=== PATIENT | male | born 1955 | race Caucasian/White ===

== ENCOUNTER → 2020-12-21 13:36 | Outpatient (BNVA) | payer MEDICARE, BC, SELFPAY | PROVIDERS: PCP Internal Medicine; Visit Provider Internal Medicine Cardiovascular Disease | DX: I25.10 Atherosclerotic heart disease of native coronary artery without angina pectoris (principal); I10 Essential (primary) hypertension; E78.5 Hyperlipidemia, unspecified | CPT/HCPCS: 93005; 99212 ==

== ENCOUNTER → 2021-07-11 14:54 | Outpatient (BNVA) | payer MEDICARE, BC, SELFPAY | PROVIDERS: PCP Family Medicine; Visit Provider Internal Medicine Cardiovascular Disease | DX: R06.00 Dyspnea, unspecified (principal); I25.10 Atherosclerotic heart disease of native coronary artery without angina pectoris | CPT/HCPCS: 99212 ==

== ENCOUNTER → 2021-11-28 14:45 | Outpatient (BNVA) | payer MEDICARE, BC, SELFPAY | PROVIDERS: PCP Family Medicine; Visit Provider Internal Medicine Cardiovascular Disease | DX: I25.10 Atherosclerotic heart disease of native coronary artery without angina pectoris (principal); I10 Essential (primary) hypertension | CPT/HCPCS: 93005; 99212 ==

== ENCOUNTER → 2022-08-05 15:00 | Outpatient (BNVA) | payer MEDICARE, BC, SELFPAY | PROVIDERS: PCP Family Medicine; Referring Provider Family Medicine; Visit Provider Internal Medicine Cardiovascular Disease | DX: I25.10 Atherosclerotic heart disease of native coronary artery without angina pectoris (principal); I10 Essential (primary) hypertension; R06.00 Dyspnea, unspecified | CPT/HCPCS: 93005; 99212 ==

== ENCOUNTER → 2022-08-15 10:05 | Outpatient (BNVA) | payer MEDICARE, BC, SELFPAY | PROVIDERS: PCP Family Medicine; Visit Provider Internal Medicine Pulmonary Disease | DX: R06.00 Dyspnea, unspecified (principal); R91.8 Other nonspecific abnormal finding of lung field | CPT/HCPCS: 99202 ==

== ENCOUNTER 2022-08-20 13:24 | Outpatient (REF) | payer MEDICARE, BC, SELFPAY ==
--- NOTE | ~2022-08-20 | CT_ITS ---
EXAMINATION: CT CHEST WITHOUT CONTRAST CLINICAL INFORMATION: Other nonspecific abnormal finding of lung field. Pulmonary nodules. COMPARISON: Previous chest x-ray September 2018 TECHNIQUE: Multidetector volumetric CT imaging of the chest was done. Axial MIP volume rendering provided. Sagittal and coronal reformatted images were obtained. This CT examination was performed using dose optimization techniques as appropriate, variously including the following: *Automated exposure control *Adjustment of mA and/or kV according to patient size (this includes techniques or standardized protocols for targeted exams where dose is matched to indication/reason for exam; i.e. extremities or head) *Use of iterative reconstruction technique DLP: 277 mGy-cm FINDINGS: LUNGS: There is a 2 mm peripheral right lower lobe nodule axial image 187 series 5. There is a 2 mm left lower lobe nodule axial image 233 series 5. There is a 2 mm right lower lobe nodule axial image 225 series 5. There is a 3 mm calcified right lower lobe nodule axial image 252 series 5. MEDIASTINUM: The mediastinum is normal. CORONARY ARTERY CALCIFICATION: Mild. PLEURA: There is no pleural effusion. No pleural mass or thickening. AXILLA: No lymphadenopathy. UPPER ABDOMEN: Unremarkable. OSSEOUS STRUCTURES: Degenerative changes of the spine. CT/CT chest wo IV con IMPRESSION: Small pulmonary nodules, largest a 3 mm calcified right lower lobe nodule. According to the UPDATED 2017 Fleischner Society recommendations, the advised follow-up imaging for less than 6 mm solid nodule: Low risk, no chest CT follow-up and high risk, optional chest CT follow-up in one year. Fleischner guidelines were followed.
== END 2022-08-20 13:25 | disposition home or self-care (01) ==
LOC: HO.CT 13:24
PROVIDERS: Visit Provider Internal Medicine Pulmonary Disease
DX: R91.8 Other nonspecific abnormal finding of lung field (principal)
CPT/HCPCS: 71250

== ENCOUNTER 2022-09-06 12:42 | Outpatient (REF) | payer MEDICARE, BC, SELFPAY ==
--- NOTE | 2022-09-06 15:22 | PFT_ITS ---
INDICATION: Dyspnea. SPIROMETRY: FEV1 to FVC of 80% with an FEV1 of 2.87 L, 102% predicted, FVC of 2.58 L, which is 92% predicted. No significant response to bronchodilators noted. Maximum voluntary ventilation 79% predicted. DIFFUSING CAPACITY: DLCO 86% predicted. COMPARISONS: None. INTERPRETATION: No obstructive ventilatory defect. No significant response to bronchodilators noted. Normal maximum voluntary ventilation. The patient does have a restrictive ventilatory defect, consistent with very mild restrictive lung disease. Normal diffusion capacity. Clinical correlation is warranted. MD CATALINA Rollins/ERICK / [phone]
== END 2022-09-06 12:43 | disposition home or self-care (01) ==
LOC: HO.RESP 12:42
PROVIDERS: PCP Family Medicine; Visit Provider Internal Medicine Pulmonary Disease
DX: R06.00 Dyspnea, unspecified (principal)
CPT/HCPCS: 94060; 94727; 94729

== ENCOUNTER → 2022-10-08 11:38 | Outpatient (BNVA) | payer MEDICARE, BC, SELFPAY | PROVIDERS: PCP Family Medicine; Visit Provider Internal Medicine Pulmonary Disease | DX: R06.00 Dyspnea, unspecified (principal); R91.8 Other nonspecific abnormal finding of lung field | CPT/HCPCS: Q3014 ==

== ENCOUNTER 2023-08-06 12:46 | Outpatient (AMB) | payer MEDICARE, BC, SELFPAY ==
[2023-08-06 13:01] VITALS: BP 130/80; PULSE 88; BMI 31.0
--- NOTE | 2023-08-06 13:01 | A.OFFVIS_ITS ---
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 He has background history of coronary artery disease and presented with inferior ST-elevation [place] for which she underwent PCI to right coronary artery. Subsequent to that he was admitted with unstable angina and had PCI to diagonal artery. He has residual LAD stenosis which was medically managed. He has been doing well and has no exertional chest discomfort. Taking medications regularly. He has dyspnea on exertion in particular when he is going up hill. He was a former smoker and was vaping for 2 years also. He was referred to pulmonology and has been following with them regularly. 08/06/2023: Returns for follow-up. He h as been experiencing more dyspnea on exertion. He has gained some weight and has not been exercising regularly. Apparently he was referred for exercise stress test by his primary care physician where he was able to exercise for 2 metabolic equivalents and stop because of shortness of breath. He subsequently had nuclear perfusion imaging which was normal. His returning and is complaining of shortness of breath. He does not have any significant chest discomfort. He is saying that pulmonology has told him that he does not have significant lung disease as cause for his dyspnea. He clearly has a lot of functional limitation. Previously we did not stent is LAD because it may involve a complex bifurcation stenting. He had resi dual disease in the LAD. [facility] History H/O removal of cyst History of heart artery stent Family History Mother Primary cancer of bone marrow Father Prostate cancer Heart disease Social History Alcohol intake: current Alcohol intake frequency: holidays/special occasions only Patient Tobacco Use Status: Former Tobacco user Quit Date: 2013 Years Smoked: 30 +/- Review of Systems Const Denies chills, Denies fatigue, Denies fever(s), Denies frequent falls, Denies weakness, Denies weight gain and Denies weight loss ENT Denies dizziness Card Denies chest pain, Denies leg edema, Denies lightheadedness, Denies palpitations, Denies dyspnea, Denies dyspnea on exertion, Denies orthopnea and Denies other (loss of consciousness) Resp Denies cough, Denies dyspnea and Denies dyspnea on exertion GI Denies hematochezia and Denies change in stool character Musc Denies abnormal gait, Denies muscle weakness, Denies numbness, Denies radiating pain into limb and Denies tingling Neuro Denies abnormal gait, Denies dizziness, Denies frequent falls, Denies numbness, Denies tingling and Denies weakness Endo Denies fatigue and Denies palpitations Physical Exam Vital Signs: Last Vital Signs Pulse 88 08/06/23 13:01 BP 130/80 08/06/23 13:01 BMI result Body Mass Index 31.0 GENERAL APPEARANCE: in no acute distress, pleasant. NECK: no carotid bruit, no jugular venous distention. SKIN: no suspicious lesions, warm and dry. HEART: no murmurs, regular rate and rhythm. LUNGS: clear to auscultation bilaterally. ABDOMEN: soft, nontender. EXTREMITIES: no edema. PERIPHERAL PULSES: equal. NEUROLOGIC: No gross deficits, AAO X 3 Assessment & Plan Assessment & Plan (1) MI (dyspnea on exertion): Code(s): R06.00 - Dyspnea, unspecified (2) Coronary artery disease: Code(s): I25.10 - Atherosclerotic heart disease of [place] coronary artery without angina pectoris Qualifiers: Coronary Disease-Associated Artery/Lesion type: [place] artery [place] vs. transplanted heart: [place] heart Associated angina: without angina Qualified Code(s): I25.10 - Atherosclerotic heart disease of [place] coronary artery without angina pectoris Plan Pleasant 68 gentleman is here for follow-up. He had RCA PCI in setting of inferior ST-elevation [place] and subsequently had diagonal PCI for angina. He is presenting now for dyspnea on exertion ongoing for some time. He had stress testing performed where he was able to exercise only for 2 metabolic equivalents and had significant dyspnea. I have explained to him that he has significant functional limitation currently and I am unsure whether this is related to his deconditioning/lack of exercise and weight gain, lung disease or progression of coronary artery disease. I have advised him that we should do diagnostic angiogram. He will discuss with his family and get back to us. Blood pressure control is good. He will continue same medications for now. Thank you for allowing me to participate in the care of your patient. Please feel free to contact me if you have any questions. Coding Level of Care Code Est Pt Level 4 (62510) Diagnoses MI (dyspnea on exertion) R06.00 Coronary artery disease involving [place] coronary artery of [place] heart without angina pectoris I25.10 Coronary Disease-Associated Artery/Lesion type: [place] artery [place] vs. transplanted heart: [place] heart Associated angina: without angina
== END 2023-08-06 13:41 | disposition home or self-care (01) ==
PROVIDERS: PCP Family Medicine; Visit Provider Internal Medicine Cardiovascular Disease
DX: R06.00 Dyspnea, unspecified (principal); I25.10 Atherosclerotic heart disease of native coronary artery without angina pectoris
CPT/HCPCS: 93010; 99214

== ENCOUNTER → 2023-08-06 12:46 | Outpatient (BNVA) | payer MEDICARE, BC, SELFPAY | PROVIDERS: PCP Family Medicine; Visit Provider Internal Medicine Cardiovascular Disease | DX: I25.10 Atherosclerotic heart disease of native coronary artery without angina pectoris (principal); R06.00 Dyspnea, unspecified; I25.2 Old myocardial infarction | CPT/HCPCS: 93005; 99212 ==

== ENCOUNTER 2023-08-29 10:56 | Outpatient (REF) | payer MEDICARE, BC, SELFPAY ==
[2023-08-29 11:08] LABS: MANUAL DIFF FLAG NO
[2023-08-29 12:01] LABS: Basophils Percent Auto 0.5 % (0-2); Eosinophils Absolute Auto 0.1 X10*3/uL (0.0-0.4); Eosinophils Percent Auto 1.6 % (0-4); Hematocrit 42.5 % (42.0-52.0); Hemoglobin 14.7 g/dl (14.0-18.0); Imm Gran Abs Auto 0.02 X10*3/uL (0.00-0.03); Imm Gran Pct Auto 0.3 % (0.0-0.4); Lymphocytes Absolute Auto 1.2 X10*3/uL (1.2-4.9); Lymphocytes Percent Auto 20.1 % (20-40); Mean Corpuscular HGB Conc 34.6 g/dl (31.0-36.0); Mean Corpuscular Volume 86.7 fL (80.0-98.0); Mean Platelet Volume 10.8 fL (9.4-12.4); Monocytes Absolute Auto 0.5 X10*3/uL (0.1-1.2); Monocytes Percent Auto 8.9 % (2-11); Neutrophils Absolute Auto 4.2 x10*3/uL (2.0-8.3); Neutrophils Percent Auto 68.6 % (45-73); Platelet Count 161 X10*3/uL (160-400); Red Cell Distribution Width 13.4 % (11.0-16.0); White Blood Count 6.1 X10*3/uL (4.8-10.8)
[2023-08-29 12:02] LABS: INTERNATIONAL NORM RATIO 1.2 (0.9-1.1); Prothrombin Time 14.4 SEC (11.1-13.3)
[2023-08-29 12:42] LABS: Anion Gap 12 (12-20); Blood Urea Nitrogen 15 mg/dL (9-16); Calcium 8.8 mg/dL (8.4-10.2); Carbon Dioxide 23 mmol/L (22-29); Chloride 109 mmol/L (96-108); Estimated Glomerular Filt Rate > 60; Glucose Random 92 mg/dL (60-115); Potassium 4.7 mmol/L (3.3-5.1); Sodium 139 mmol/L (135-145)
== END 2023-08-29 10:57 | disposition home or self-care (01) ==
LOC: HO.LAB 10:56
PROVIDERS: PCP Family Medicine; Visit Provider Nurse Practitioner
DX: R06.00 Dyspnea, unspecified (principal); I25.10 Atherosclerotic heart disease of native coronary artery without angina pectoris
CPT/HCPCS: 36415; 80048; 85025; 85610

== ENCOUNTER → 2023-09-09 23:59 | Outpatient (BNV) | payer MEDICARE, BC, SELFPAY | PROVIDERS: PCP Family Medicine; Visit Provider Internal Medicine Cardiovascular Disease | DX: R93.1 Abnormal findings on diagnostic imaging of heart and coronary circulation (principal); I20.89 Other forms of angina pectoris | CPT/HCPCS: 93458; 93571; 93572; 99152 ==

== ENCOUNTER 2023-09-24 13:29 | Outpatient (AMB) | payer MEDICARE, BC, SELFPAY ==
--- NOTE | 2023-09-24 13:30 | MHC.OFFVIS ---
Intake Vital Signs 09/24/23 13:31 Height 5 ft 6 in Weight 180 lb 12.465 oz BMI 29.2 BP 120/80 Blood Pressure Location Lt brachial Position Sitting Pulse 74 Intake Visit Reasons: Follow up post cardiac cath Intake Note: follow up post cardiac cath, heavy breathing Evaluation Assistant Required: No Accompanied by: Self / Same As Patient Allergies No Known Allergies [No Known Allergies*] Allergy (Verified 09/24/23 13:40) Medication List - Last Reconciled 09/24/23 by Purnima Serna NP aspirin 81 mg PO DAILY atorvastatin 80 mg PO DAILY bupropion HCl 150 mg PO QAM carvedilol 3.125 mg PO BID clopidogrel 75 mg PO DAILY lisinopril 2.5 mg PO DAILY nitroglycerin 0.4 mg sublingual Q5M PRN HPI HPI Comments History of Present Illness Details 68-year-old male presents for a follow-up after cardiac cath. He reports he is still short of breath on exertion. He reports compliance with his medications. He continues to not smoke/vape. He did a PFT and Chest X-Ray and reports they were fine and will forward those results to us. He will see Pulmonary once he can make his appointment. Right radial site is healing well. No erythema, tenderness, or bruising noted. Breathing is noted to not be cardiac related as no significant changes from 2018 cath. [facility] Surgical History (Updated 09/24/23 @ 14:01 by Purnima Serna NP) H/O removal of cyst History of heart artery stent Family History Mother Primary cancer of bone marrow Father Prostate cancer Heart disease (Updated 09/24/23 @ 13:50 by Purnima Serna NP) Alcohol intake: current Alcohol intake frequency: holidays/special occasions only Patient Tobacco Use Status: Former Tobacco user Quit Date: 2013 Years Smoked: 30 +/- e-Cigarette/Vaping Use: Former Use Date or number of years quit: quit 2016 Review of Systems Const Denies chills, Denies fatigue, Denies fever(s), Denies frequent falls, Denies weakness, Denies weight gain and Denies weight loss ENT Denies dizziness Card Denies chest pain, Denies leg edema, Denies lightheadedness, Denies palpitations, Denies dyspnea, Denies dyspnea on exertion, Denies orthopnea and Denies other (loss of consciousness) Resp Denies cough, Denies dyspnea and Denies dyspnea on exertion GI Denies hematochezia and Denies change in stool character Musc Denies abnormal gait, Denies muscle weakness, Denies numbness, Denies radiating pain into limb and Denies tingling Neuro Denies abnormal gait, Denies dizziness, Denies frequent falls, Denies numbness, Denies tingling and Denies weakness Endo Denies fatigue and Denies palpitations Physical Exam Vital Signs: Last Vital Signs BP 120/80 09/24/23 13:31 BMI result Body Mass Index 29.2 Const General: healthy appearing and no acute distress Orientation/consciousness: patient oriented x3 HEENT Head: Yes normal to inspection Eyes General: appearance normal, both eyes and all related structures Neck Neck: Yes normal visual inspection Chest Chest palpation & inspection: normal inspection of the chest Resp Effort & Inspection: normal respiratory effort Auscultation: clear to auscultation bilaterally Cardio Jugular venous distension: no JVD Palpation: normal PMI Rate: regular rate Rhythm: regular rhythm Heart sounds: S1 normal heart sound present, S2 normal heart sound present, no click, no gallops, no murmurs and no rubs GI Inspection: Yes normal to inspection Palpation (GI): Soft to palpation Skin General skin exam: no rashes or lesions noted Neuro General: patient oriented x3 Extrem Other: Right radial site healing appropriately. General: Yes normal to inspection Psych Appearance: grossly normal Assessment & Plan Assessment & Plan (1) S/P cardiac cath: Comment: 09/09/[address] Garsia Cardiac Arteries and Lesion Findings LMCA: Normal. LAD: There is a previous stent on 1st Diag Mid subsection. Lesion in Prox LAD: Proximal subsection.65% stenosis . LCx: Mild disease mid LCx. RCA: There is a previous stent on Dist RCA. Lesion in Mid RCA: 60% stenosis Code(s): Z98.890 - Other specified postprocedural states (2) Stable angina: Code(s): I20.89 - Other forms of angina pectoris Plan Plan for cardiac rehab. He will do this at [facility] per his preference. Continue ASA 81mg indefinitely. Aggressive risk factor modification such as heart healthy diet, weight loss, continue no smoking/vaping, and continue medications as currently prescribed. Orders: Orders Cardiac Rehab Today I20.89 - Other forms of angina pectoris, Z98.890 - Other specified postprocedural states Coding Level of Care Code Est Pt Level 3 (26308) Diagnoses S/P cardiac cath Z98.890 Stable angina I20.89
[2023-09-24 13:31] VITALS: BP 120/80; PULSE 74; BMI 29.2
== END 2023-09-24 14:00 | disposition home or self-care (01) ==
PROVIDERS: PCP Family Medicine; Visit Provider Nurse Practitioner
DX: Z98.890 Other specified postprocedural states (principal); I20.89 Other forms of angina pectoris
CPT/HCPCS: 99213

== ENCOUNTER → 2023-09-24 13:29 | Outpatient (BNVA) | payer MEDICARE, BC, SELFPAY | PROVIDERS: PCP Family Medicine; Visit Provider Nurse Practitioner | DX: I20.89 Other forms of angina pectoris (principal); Z98.890 Other specified postprocedural states; Z95.5 Presence of coronary angioplasty implant and graft | CPT/HCPCS: 99212 ==

== ENCOUNTER 2023-10-05 11:04 | Emergency (ER) | payer MEDICARE, BC, SELFPAY ==
--- NOTE | ~2023-10-05 | XR_ITS ---
EXAMINATION: XR CHEST CLINICAL INFORMATION: Shortness of breath and chest pain COMPARISON: Chest x-ray 09/30/2018 TECHNIQUE: 2 views of the chest were obtained. FINDINGS: Patient is rotated to the right. The cardiomediastinal silhouette is stable. No vascular congestion or edema. Mildly hypoexpanded lungs. No consolidation, effusion, or pneumothorax. XR/XR chest 2V IMPRESSION: No acute cardiopulmonary findings.
[2023-10-05 11:29] VITALS: BP 119/89; PULSE 52; RESP 18; TEMP 36.5; O2SAT 99; BMI 29.6
[2023-10-05 11:33] VITALS: PULSE 54
--- NOTE | 2023-10-05 11:36 | PC.NURSE ---
chest pain behind sternum 01/10. radiation to jaw. sinus maribell on monitor. alert oriented x4, ambulatory.
[2023-10-05 12:19] LABS: MANUAL DIFF FLAG NO
[2023-10-05 12:21] LABS: Basophils Percent Auto 0.2 % (0-2); Eosinophils Absolute Auto 0.1 X10*3/uL (0.0-0.4); Eosinophils Percent Auto 1.1 % (0-4); Hematocrit 43.3 % (42.0-52.0); Hemoglobin 14.9 g/dl (14.0-18.0); Imm Gran Abs Auto 0.02 X10*3/uL (0.00-0.03); Imm Gran Pct Auto 0.3 % (0.0-0.4); Lymphocytes Percent Auto 16.6 % (20-40); Mean Corpuscular HGB Conc 34.4 g/dl (31.0-36.0); Mean Corpuscular Hemoglobin 29.6 pg (27.0-33.0); Mean Corpuscular Volume 86.1 fL (80.0-98.0); Mean Platelet Volume 10.2 fL (9.4-12.4); Monocytes Absolute Auto 0.5 X10*3/uL (0.1-1.2); Monocytes Percent Auto 7.4 % (2-11); Neutrophils Absolute Auto 4.6 x10*3/uL (2.0-8.3); Neutrophils Percent Auto 74.4 % (45-73); Platelet Count 142 X10*3/uL (160-400); Red Blood Count 5.03 X10*6/uL (4.60-5.80); Red Cell Distribution Width 13.4 % (11.0-16.0); White Blood Count 6.2 X10*3/uL (4.8-10.8)
[2023-10-05 12:28] LABS: INTERNATIONAL NORM RATIO 1.2 (0.9-1.1); Prothrombin Time 14.7 SEC (11.1-13.3)
[2023-10-05 12:45] LABS: Anion Gap 14 (12-20)
[2023-10-05 12:48] LABS: Troponin-I High Sensitivity < 2.7 ng/L (<3.5-35.0)
[2023-10-05 13:04] LABS: Alanine Aminotransferase 115 U/L (0-40); Albumin Level 3.6 g/dL (3.5-5.0); Alkaline Phosphatase 79 U/L (39-117); Aspartate Amino Transferase 70 U/L (5-37); Blood Urea Nitrogen 18 mg/dL (9-16); Calcium 8.6 mg/dL (8.4-10.2); Carbon Dioxide 20 mmol/L (22-29); Chloride 108 mmol/L (96-108); Creatinine Clr Calc Pharmacy 79.2; Estimated Glomerular Filt Rate > 60; Glucose Random 94 mg/dL (60-115); Magnesium 2.2 mg/dL (1.6-2.6); Potassium 4.6 mmol/L (3.3-5.1); Sodium 137 mmol/L (135-145); Total Protein 6.5 g/dL (6.5-8.0)
[2023-10-05 13:19] LABS: Influenza A PCR NEGATIVE (Negative); Influenza B PCR NEGATIVE (Negative); Resp Syncy Virus RNA Qual PCR NEGATIVE (Negative); SARS COV2 PCR INHOUSE NEGATIVE (Negative)
--- NOTE | 2023-10-05 13:36 | ED.CHESTPAIN ---
HPI - Chest Pain General Chief Complaint: Chest Pain Stated Complaint: Chest pain/Jaw pain Time Seen by Provider: 10/05/23 13:02 Source: patient and RN notes reviewed Mode of arrival: ambulatory Limitations: no limitations History of Present Illness HPI narrative: This is a 68-year-old male, with a history of coronary artery disease, STEMI with stent placement in 2018 on Plavix, former 40 pack year smoker who presents to the emergency department with complaints of pleuritic chest pain and right-sided jaw pain since this morning. Patient states that while he was resting he developed pleuritic chest pain which radiated into his right jaw. Patient denies any chest pain at rest. He states that over the last several months he has had increased shortness of breath which has worsened over the last 3 weeks, and has noticed a significant change with shortness of breath over the last week. He endorses a cough with white-colored sputum. Denies any recent travel, surgeries, hospitalizations, history of blood clots, or cancer history. 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 Garsia, last seen on August 06, 2023 due to dyspnea on exertion without any acute findings. No other complaints or concerns at this time. MD complaint: chest pain Pertinent past history: coronary artery disease and prior [facility] Onset (ago): hour(s) Timing of current episode: episodic and still present Prior episodes: No Onset: other (With deep inspiration) Pain location: substernal Pain radiation: jaw/teeth Severity: moderate Quality: aching Relieving factors: nothing Exacerbating factors: nothing Treatment prior to arrival: none Risk Factors Coronary artery disease risk factors: none Thoracic aortic dissection risk factors: none Related Data Home Medications Medication Instructions Recorded Confirmed nitroglycerin 0.4 mg sublingual 0.4 mg sublingual Q5M PRN 12/21/20 09/24/23 tablet bupropion HCl 150 mg 24 hr tablet, 150 mg PO QAM 08/06/23 09/24/23 extended release Previous Rx's Medication Instructions Recorded clopidogrel 75 mg tablet 75 mg PO DAILY #90 tabs 02/19/23 atorvastatin 80 mg tablet 80 mg PO DAILY #90 tabs 07/08/23 carvedilol 3.125 mg tablet 3.125 mg PO BID #180 tabs 07/08/23 lisinopril 2.5 mg tablet 2.5 mg PO DAILY #90 tabs 07/08/23 aspirin 81 mg tablet,delayed 81 mg PO DAILY #90 tabs 07/21/23 release Allergies Allergy/AdvReac Type Severity Reaction Status Date / Time No Known Allergies Allergy Verified 09/24/23 13:40 [No Known Allergies*] Review of Systems Review of Systems: Yes all other systems are reviewed and are negative Constitutional: Constitutional: Reports as per [facility] Past Medical History Surgical History H/O removal of cyst History of heart artery stent Family History Family History Mother Primary cancer of bone marrow Father Prostate cancer Heart disease Social History Social History (Updated 09/24/23 @ 13:50 by Purnima Serna NP) Alcohol intake: current Alcohol intake frequency: holidays/special occasions only Patient Tobacco Use Status: Former Tobacco user Quit Date: 2013 Years Smoked: 30 +/- Smoked in Last 30 Days: No e-Cigarette/Vaping Use: Former Use Date or number of years quit: quit 2016 Use of substances other than those prescribed or required for medical reasons: No Advance Directives: No Advance Directives Information Provided: Yes Physical Exam Vital Signs: Vital Signs: Last Vital Signs Temp 97.7 F 10/05/23 11:29 Pulse 52 10/05/23 16:47 Resp 14 10/05/23 16:47 BP 122/78 10/05/23 16:47 Pulse Ox 97 10/05/23 16:47 O2 Del Method Room Air 10/05/23 16:47 BMI result Body Mass Index 29.6 Const: General: cooperative, comfortable and no acute distress Orientation/consciousness: patient oriented x3 Limitations: no limitations HEENT: Head: Yes normal to inspection, Yes normocephalic and Yes atraumatic Ears: hearing grossly normal bilaterally General nose exam: Normal external nose present Face and sinus: Yes normal facial exam Mouth: Normal oral and palatal mucosa present, oropharynx normal and moist mucous membranes Throat: Yes posterior oropharynx normal Eyes: General: appearance normal, both eyes and all related structures Eyelids: Yes eyelids normal Conjunctivae: conjunctivae normal Sclerae: sclerae normal Pupils: Equal, round and reactive pupils present EOM: EOMs intact bilaterally Neck: Neck: Yes normal visual inspection, Yes full ROM and Yes no lymphadenopathy Lymphatic: no lymphadenopathy noted Chest: Other: Tenderness palpation along the anterior chest wall. Chest palpation & inspection: normal inspection of the chest Resp: Effort & Inspection: normal respiratory effort and able to speak in complete sentences Auscultation: clear to auscultation bilaterally, no crackles, no rales, no rhonchi and no wheezes Cardio: Rate: regular rate Rhythm: regular rhythm Heart sounds: S1 normal heart sound present and S2 normal heart sound present GI: Inspection: Yes normal to inspection Skin: General skin exam: no rashes or lesions noted Trauma: no lacerations or abrasions Wounds: no wounds Neuro: General: patient oriented x3 and moves all extremities Cranial nerves: Yes Equal, round and reactive pupils present Extrem: General: Yes normal to inspection Right upper extremity: normal to inspection Left upper extremity: normal to inspection Right lower extremity: normal to inspection Left lower extremity: normal to inspection Course Reevaluation(s) Reevaluation #1: Patient is well-appearing, in no acute distress, throughout his entire stay in the emergency department he has been patient has been stable, EKG normal sinus rhythm, no ST elevation depression, no leukocytosis, stable H&H, chest x-ray unremarkable. D-dimer and 2nd troponin was added. Sign out was given to my colleague, Mac Granados PA-C pending ddimer and second troponin. Time: 16:53 Reevaluation #2: Patient received in sign-out at change shift pending repeat troponin, D-dimer both of which are unremarkable. I discussed the patient, he still does have intermittent chest pain. He did have a cardiac catheterization less than a month ago that did not show any significant plaque buildup over the last 5 years. Patient is due to follow-up with pulmonology Time: 18:16 Medical Decision Making Medical Decision Making MDM Narrative: This is a 68-year-old male, with a history of coronary artery disease, prior STEMI with 2 stent placement, on Plavix, with complaints of pleuritic chest pain since this morning. Chest pain only occurs with deep inspiration. On examination, labs within normal limits. Patient has tenderness palpation along the anterior chest wall. Patient has had shortness of breath as well as a cough. On arrival, vital signs within normal limits. Patient is nontoxic appearing. He appears to be in no acute distress. Given cardiac history, will obtain cardiac workup, chest x-ray, viral swabs, labs, EKG. Patient is not tachycardic, not hypoxic, unable to rule out given age. Patient has a heart score of 4. Differential Diagnosis Differential Diagnoses: The differential diagnosis associated with the presentation includes ACS, costochondritis, pulmonary embolism, anxiety Admission/Observation Consideration of admission/observation: Escalation of care including admission/observation considered Escalation of care including admission observation was considered. Lab Data MDM Lab Attestation statement: I reviewed the patient's lab results. No leukocytosis, stable H&H, BUN around his baseline, Mildly elevated LFTs, history of elevated liver enzymes. 10/05/23 12:14 10/05/23 12:14 Labs: Lab Results 10/05/23 10/05/23 Range/Units 12:14 16:44 WBC 6.2 (4.8-10.8) X10*3/uL RBC 5.03 (4.60-5.80) X10*6/uL Hgb 14.9 (14.0-18.0) g/dl Hct 43.3 (42.0-52.0) % MCV 86.1 (80.0-98.0) fL MCH 29.6 (27.0-33.0) pg MCHC 34.4 (31.0-36.0) g/dl RDW 13.4 (11.0-16.0) % Plt Count 142 L (160-400) X10*3/uL MPV 10.2 (9.4-12.4) fL Immature Gran % (Auto) 0.3 (0.0-0.4) % Neut % (Auto) 74.4 H (45-73) % Lymph % (Auto) 16.6 L (20-40) % [place] % (Auto) 7.4 (2-11) % Eos % (Auto) 1.1 (0-4) % Baso % (Auto) 0.2 (0-2) % Lymph # (Auto) 1.0 L (1.2-4.9) X10*3/uL [place] # (Auto) 0.5 (0.1-1.2) X10*3/uL Eos # (Auto) 0.1 (0.0-0.4) X10*3/uL Baso # (Auto) 0.0 (0.0-0.2) X10*3/uL Abs Immat Gran (auto) 0.02 (0.00-0.03) X10*3/uL Absolute Neuts (auto) 4.6 (2.0-8.3) x10*3/uL Absolute Nucleated RBC 0.000 (0.0-0.012) X10*3/uL Nucleated RBC % (auto) 0.0 (0.0-0.2) /100WBC PT 14.7 H (11.1-13.3) SEC INR 1.2 H (0.9-1.1) D-Dimer High Sensitivty < 150 NG/ML Sodium 137 (135-145) mmol/L Potassium 4.6 (3.3-5.1) mmol/L Chloride 108 (96-108) mmol/L Carbon Dioxide 20 L (22-29) mmol/L Anion Gap 14 (12-20) BUN 18 H (9-16) mg/dL Creatinine 0.89 (0.5-1.4) mg/dL Estim Creat Clear Calc 79.2 Estimated GFR > 60 Random Glucose 94 (60-115) mg/dL Calcium 8.6 (8.4-10.2) mg/dL Magnesium 2.2 (1.6-2.6) mg/dL Total Bilirubin 1.0 (0.0-1.0) mg/dL AST 70 H (5-37) U/L ALT 115 H (0-40) U/L Alkaline Phosphatase 79 (39-117) U/L Troponin I High Sens < 2.7 < 2.7 (<3.5-35.0) ng/L Total Protein 6.5 (6.5-8.0) g/dL Albumin 3.6 (3.5-5.0) g/dL Influenza Type A (PCR) NEGATIVE (Negative) Influenza Type B (PCR) NEGATIVE (Negative) RSV RNA Qual (PCR) NEGATIVE (Negative) SARS-CoV-2 RNA (RT-PCR) NEGATIVE (Negative) Independent Interpretation I performed an independent interpretation of an: EKG Interpretation: EKG sinus bradycardia at a ventricular rate at 50 beats per minute, LA interval 156, QTC 390, no ST elevation or depression. Radiology Impression Discussion of test interpretation with radiology: I have reviewed the radiologist's reading. Radiologist Impression: EXAMINATION: XR CHEST CLINICAL INFORMATION: Shortness of breath and chest pain COMPARISON: Chest x-ray 09/30/2018 TECHNIQUE: 2 views of the chest were obtained. FINDINGS: Patient is rotated to the right. The cardiomediastinal silhouette is stable. No vascular congestion or edema. Mildly hypoexpanded lungs. No consolidation, effusion, or pneumothorax. XR/XR chest 2V IMPRESSION: No acute cardiopulmonary findings. Dictated By: Keshav Thornton MD Scores Heart Score History: -1- moderately suspicious ECG: -0- normal Age: -2- > or = 65 Risk factory: -1- 1 or 2 risk factors Troponin: -0- < or = normal limit Score: 4 Risk: 16.6% Discharge Plan Discharge Clinical Impression: Chest pain Patient Disposition: Home, Self-Care Additional Instructions: Your chest x-ray was normal today. You tested negative for flu, RSV, and COVID. Your labs are reassuring. You did have mild elevation in your liver enzymes, please follow-up with your primary care physician in 1 week regarding this finding. Please drink plenty of fluids get plenty of rest. If any new or worsening symptoms occur including but not limited to worsening chest pain, please return for re-evaluation. Prescriptions: No Action clopidogrel 75 mg tablet 75 mg PO DAILY Qty: 90 3RF carvedilol 3.125 mg tablet 3.125 mg PO BID Qty: 180 2RF atorvastatin 80 mg tablet 80 mg PO DAILY Qty: 90 2RF lisinopril 2.5 mg tablet 2.5 mg PO DAILY Qty: 90 2RF aspirin 81 mg tablet,delayed release (DR/EC) 81 mg PO DAILY Qty: 90 3RF nitroglycerin 0.4 mg tablet, sublingual 0.4 mg sublingual Q5M PRN Rx Instructions: do not exceed 3 doses per episode bupropion HCl 150 mg tablet extended release 24 hr 150 mg PO QAM
[2023-10-05 14:00] VITALS: BP 122/77; PULSE 49; RESP 18; O2SAT 98
--- NOTE | 2023-10-05 14:41 | PC.NURSE ---
pt reports that he still has mild pain under his sternum 01/10. CXR complete. pt has longstanding SOB which he is following with cardiology. this has been going on since his LA in 2018.
--- NOTE | 2023-10-05 16:40 | PC.NURSE ---
tech drawing repeat trop and d dimer. pt reports that pain/chest discomfort is still present but minimal. jaw pain also noticable but not like it was this morning states patient. no complaints at this times, no distress noted. awaiting lab results
[2023-10-05 16:47] VITALS: BP 122/78; PULSE 52; RESP 14; O2SAT 97
[2023-10-05 17:11] LABS: D Dimer High Sensitivity < 150 NG/ML
[2023-10-05 17:13] LABS: Troponin-I High Sensitivity < 2.7 ng/L (<3.5-35.0)
== END 2023-10-05 18:36 | disposition home or self-care (01) ==
PROVIDERS: Physician Assistant Medical; Emergency Provider Emergency Medicine; PCP Family Medicine
DX: R07.9 Chest pain, unspecified (principal); R68.84 Jaw pain; R05.9 Cough, unspecified; R06.02 Shortness of breath; I25.10 Atherosclerotic heart disease of native coronary artery without angina pectoris; F17.200 Nicotine dependence, unspecified, uncomplicated; Z79.899 Other long term (current) drug therapy; Z20.822 Contact with and (suspected) exposure to COVID-19; Z20.828 Contact with and (suspected) exposure to other viral communicable diseases; Z95.818 Presence of other cardiac implants and grafts
CPT/HCPCS: 0241U; 36415; 71046; 80053; 83735; 84484; 85025; 85379; 85610; 99284; 99285

== ENCOUNTER 2023-11-12 15:04 | Outpatient (AMB) | payer MEDICARE, BC, SELFPAY ==
--- NOTE | 2023-11-12 15:13 | MHC.OFFVIS ---
Intake Vital Signs 11/12/23 15:14 Height 5 ft 6 in Weight 176 lb 5.917 oz BMI 28.5 BP 102/72 Blood Pressure Location Lt brachial Position Sitting Pulse 79 Pulse Source Doppler Pulse Oximetry (%) 97 Oxygen Delivery Method Room Air Intake Visit Reasons: increased shortness of breath Allergies No Known Allergies [No Known Allergies*] Allergy (Verified 11/12/23 15:18) HPI increased shortness of breath HPI Details 68-year-old gentleman, former approximately 40 pack-year smoker, with underlying history of CAD status post PCI, followed by Dr. Garsia, with recent left heart catheterization showing 65% mid-LAD lesion, followed for pulmonary component to his dyspnea on exertion. Patient continues to complain of significant dyspnea on exertion after walking less than 1 block. Patient does states that before some of 2022 he was able to walk for approximately 3 miles. So far his pulmonary workup is negative. He does have reactive airway component on pulmonary function testing, however his pulmonary flows and volumes are essentially normal. [facility] Surgical History H/O removal of cyst History of heart artery stent Family History Mother Primary cancer of bone marrow Father Prostate cancer Heart disease Social History Alcohol intake: current Alcohol intake frequency: holidays/special occasions only Patient Tobacco Use Status: Former Tobacco user Quit Date: 2013 Years Smoked: 30 +/- e-Cigarette/Vaping Use: Former Use Date or number of years quit: quit 2016 Review of Systems Const Denies daytime sleepiness, Denies excessive sweating, Denies fatigue, Denies fever(s), Denies lethargy, Denies malaise, Denies night sweats, Denies snoring and Denies weight loss Eyes Denies blurry vision and Denies itchy eyes ENT Denies nasal congestion, Denies post nasal drip, Denies sinus pain, Denies sinus pressure and Denies other ( Thrush) Card Denies chest pain, Denies pedal edema, Denies dyspnea, Reports dyspnea on exertion, Denies orthopnea and Denies paroxysmal nocturnal dyspnea Resp Denies cough, Denies hemoptysis, Denies excessive phlegm production, Denies dyspnea, Reports dyspnea on exertion, Denies snoring and Denies wheezing GI Denies abdominal pain and Denies heartburn Musc Denies myalgias, Denies arthralgias and Denies joint swelling Skin/Breast Denies rash Neuro Denies memory loss and Denies seizure-like activity Psych Denies abnormal sleep pattern, Denies anxiety and Denies memory loss Endo Denies excessive sweating, Denies fatigue and Denies heat intolerance Swapnil/Lymph Denies easy bruising Aller/Immun Denies itchy eyes, Denies seasonal rhinorrhea and Denies wheezing Physical Exam Vital Signs: Last Vital Signs Pulse 79 11/12/23 15:14 BP 102/72 11/12/23 15:14 Pulse Ox 97 11/12/23 15:14 Oxygen Delivery Method Room Air 11/12/23 15:14 BMI result Body Mass Index 28.5 Const General: no acute distress and alert Nutritional Appearance: not obese Orientation/consciousness: Other orientation findings ( oriented) HEENT Head: Yes atraumatic Eyes General: appearance normal, both eyes and all related structures Sclerae: sclerae normal EOM: EOMs intact bilaterally Neck Neck: Yes supple Lymphatic: no lymphadenopathy noted Resp Effort & Inspection: normal respiratory effort and no use of accessory muscles Auscultation: clear to auscultation bilaterally Cardio Rate: regular rate Rhythm: regular rhythm Heart sounds: no gallops, no murmurs and no rubs Skin General skin exam: other ( warm) Extrem General: No clubbing, No cyanosis and No edema Assessment & Plan Assessment & Plan (1) MI (dyspnea on exertion): Code(s): R06.00 - Dyspnea, unspecified Plan: So far unrevealing workup. Will obtain cardiopulmonary exercise test to evaluate underlying aerobic capacity. (2) Reactive airway disease: Code(s): J45.909 - Unspecified asthma, uncomplicated Plan: Restart Anoro. Orders: Orders CA cardiopulmonary stress test Today R06.00 - Dyspnea, unspecified Medications: New umeclidinium-vilanterol 62.5-25 mcg/actuation (Anoro Ellipta) 1 inh inhalation DAILY 3 ea 4RF 90 days Coding Level of Care Code Est Pt Level 4 (85751) Diagnoses MI (dyspnea on exertion) R06.00 Reactive airway disease J45.909
[2023-11-12 15:14] VITALS: BP 102/72; PULSE 79; O2SAT 97; BMI 28.5
== END 2023-11-12 15:36 | disposition home or self-care (01) ==
PROVIDERS: PCP Family Medicine; Visit Provider Internal Medicine Pulmonary Disease
DX: R06.00 Dyspnea, unspecified (principal); J45.909 Unspecified asthma, uncomplicated
CPT/HCPCS: 99214

== ENCOUNTER → 2023-11-12 15:04 | Outpatient (BNVA) | payer MEDICARE, BC, SELFPAY | PROVIDERS: PCP Family Medicine; Visit Provider Internal Medicine Pulmonary Disease | DX: R06.00 Dyspnea, unspecified (principal); J45.909 Unspecified asthma, uncomplicated | CPT/HCPCS: 99212 ==

== ENCOUNTER 2023-12-08 14:09 | Outpatient (AMB) | payer MEDICARE, BC, SELFPAY ==
[2023-12-08 14:27] VITALS: BP 111/62; PULSE 70; BMI 28.1
--- NOTE | 2023-12-08 14:27 | A.OFFVIS_ITS ---
Intake Vital Signs 12/08/23 14:27 Height 5 ft 6 in Weight 174 lb 2.643 oz BMI 28.1 BP 111/62 Blood Pressure Location Lt brachial Position Sitting Pulse 70 Pulse Source Pulse Oximeter Intake Visit Reasons: 3 mth fu Intake Note: pt its here in the office for a 3 mnth f/up pt states that he its doing fine. Record Producer Required: No Accompanied by: Self / Same As Patient Allergies No Known Allergies [No Known Allergies*] Allergy (Verified 11/12/23 15:18) Medication List - Last Reconciled 12/08/23 by Julian Garsia MD albuterol sulfate 90 mcg/actuation 2 puffs inhalation QID PRN 90 days aspirin 81 mg PO DAILY atorvastatin 80 mg PO DAILY carvedilol 3.125 mg PO BID clopidogrel 75 mg PO DAILY lisinopril 2.5 mg PO DAILY nitroglycerin 0.4 mg sublingual Q5M PRN umeclidinium-vilanterol 62.5-25 mcg/actuation (Anoro Ellipta) 1 inh inhalation DAILY 90 days HPI HPI Comments History of Present Illness Details Pleasant 68-year-old gentleman here for follow-up. He has background history of coronary artery disease and presented with inferior ST-elevation DE for which she underwent PCI to right coronary artery. Subsequent to that he was admitted with unstable angina and had PCI to diagonal artery. He has residual LAD stenosis which was medically managed. He has been doing well and has no exertional chest discomfort. Taking medications regularly. He has dyspnea on exertion in particular when he is going up hill. He was a former smoker and was vaping for 2 years also. He was referred to pulmonology and has been following with them regularly. 08/06/2023: Returns for follow-up. He h as been experiencing more dyspnea on exertion. He has gained some weight and has not been exercising regularly. Apparently he was referred for exercise stress test by his primary care physician where he was able to exercise for 2 metabolic equivalents and stop because of shortness of breath. He subsequently had nuclear perfusion imaging which was normal. His returning and is complaining of shortness of breath. He does not have any significant chest discomfort. He is saying that pulmonology has told him that he does not have significant lung disease as cause for his dyspnea. He clearly has a lot of functional limitation. Previously we did not stent is LAD because it may involve a complex bifurcation stenting. He had residual disease in the LAD. 12/08/2023: He returns for follow-up. He was complaining of dyspnea on exertion and after discussion she was taken for diagnostic cardiac catheterization. Cardiac catheterization showed that he continues to have a moderate ostial LAD stenosis. This was retested with IFR and IFR was 0.91 quite similar to 2018. Given the fact that he had worsening dyspnea over the last few months and the fact that his coronary anatomy was unchanged it was felt that dyspnea is due to some other pathology. He is not returning and has been exercising and has lost some weight and is saying that his breathing has improved somewhat. He also is following with pulmonology and went a cardiopulmonary exercise stress test. I have explained to him that he may qualify for cardiac rehabilitation and he is interested in that. [facility] Surgical History H/O removal of cyst History of heart artery stent Family History Mother Primary cancer of bone marrow Father Prostate cancer Heart disease Social History Alcohol intake: current Alcohol intake frequency: holidays/special occasions only Patient Tobacco Use Status: Former Tobacco user Quit Date: 2013 Years Smoked: 30 +/- e-Cigarette/Vaping Use: Former Use Date or number of years quit: quit 2016 Review of Systems Const Denies chills, Denies fatigue, Denies fever(s), Denies frequent falls, Denies weakness, Denies weight gain and Denies weight loss ENT Denies dizziness Card Denies chest pain, Denies leg edema, Denies lightheadedness, Denies palpitations, Denies dyspnea and Denies dyspnea on exertion Resp Denies cough, Denies dyspnea and Denies dyspnea on exertion GI Denies hematochezia Musc Denies abnormal gait, Denies muscle weakness, Denies numbness, Denies radiating pain into limb and Denies tingling Neuro Denies abnormal gait, Denies dizziness, Denies frequent falls, Denies numbness, Denies tingling and Denies weakness Endo Denies fatigue and Denies palpitations Physical Exam Vital Signs: Last Vital Signs Pulse 70 02/05/24 14:27 BP 111/62 12/08/23 14:27 BMI result Body Mass Index 28.1 GENERAL APPEARANCE: in no acute distress, pleasant. NECK: no carotid bruit, no jugular venous distention. SKIN: no suspicious lesions, warm and dry. HEART: no murmurs, regular rate and rhythm. LUNGS: clear to auscultation bilaterally. ABDOMEN: soft, nontender. EXTREMITIES: no edema. PERIPHERAL PULSES: equal. NEUROLOGIC: No gross deficits, AAO X 3 Assessment & Plan Assessment & Plan (1) Stable angina: Code(s): I20.89 - Other forms of angina pectoris (2) MI (dyspnea on exertion): Code(s): R06.00 - Dyspnea, unspecified (3) Hypertension: Comment: Blood pressure control is good. Code(s): I10 - Essential (primary) hypertension Qualifiers: Hypertension type: essential hypertension Qualified Code(s): I10 - Essential (primary) hypertension Plan Pleasant 68-year-old gentleman is here for follow-up. He had RCA PCI followed by diagonal PCI in the past. He had residual 50-60% proximal LAD stenosis involving the LAD diagonal bifurcation. This also extends to the ostium and stenting the LAD would involve stenting the left main. This was part of the reason that it was not intervened on previously along with the fact that his IFR was previously normal. Given the fact that he had progressive dyspnea we decided to repeat angiography which has shown very similar anatomy to 2018 and in fact is IFR is identical at 0.91 as it was in 2018. I have explained to him that coronary disease does not explain his symptoms currently. He has exercise and lost some weight and is feeling better already. I am referring him to cardiac rehabilitation. I think he will improve with diet and exercise. He will see us back in few months. Thank you for allowing me to participate in the care of your patient. Please feel free to contact me if you have any questions. Orders: Orders Cardiac Rehab Today I20.89 - Other forms of angina pectoris Coding Level of Care Code Est Pt Level 4 (00322) Diagnoses Stable angina I20.89 MI (dyspnea on exertion) R06.00 Essential hypertension I10 Hypertension type: essential hypertension
== END 2023-12-08 15:12 | disposition home or self-care (01) ==
PROVIDERS: PCP Family Medicine; Visit Provider Internal Medicine Cardiovascular Disease
DX: I20.89 Other forms of angina pectoris (principal); R06.00 Dyspnea, unspecified; I10 Essential (primary) hypertension
CPT/HCPCS: 99214

== ENCOUNTER → 2023-12-08 14:09 | Outpatient (BNVA) | payer MEDICARE, BC, SELFPAY | PROVIDERS: PCP Family Medicine; Visit Provider Internal Medicine Cardiovascular Disease | DX: I20.89 Other forms of angina pectoris (principal); I10 Essential (primary) hypertension; R06.00 Dyspnea, unspecified | CPT/HCPCS: 99212 ==

== ENCOUNTER 2023-12-25 15:04 | Outpatient (AMB) | payer MEDICARE, BC, SELFPAY ==
--- NOTE | 2023-12-25 15:06 | MHC.OFFVIS ---
Intake Vital Signs 12/25/23 15:07 Height 5 ft 6 in Weight 180 lb BMI 29.0 BP 112/64 Blood Pressure Location Rt brachial Position Sitting Pulse 67 Pulse Source Doppler Pulse Oximetry (%) 98 Oxygen Delivery Method Room Air Intake Visit Reasons: increased shortness of breath Allergies No Known Allergies [No Known Allergies*] Allergy (Verified 12/25/23 15:11) HPI increased shortness of breath HPI Details 68-year-old gentleman, former approximately 40 pack-year smoker, with underlying history of CAD status post PCI, followed by Dr. Garsia, with recent left heart catheterization showing 65% mid-LAD lesion, followed for pulmonary component to his dyspnea on exertion. Patient continues to complain of significant dyspnea on exertion after walking less than 1 block. Patient does states that before some of 2022 he was able to walk for approximately 3 miles. So far his pulmonary workup is negative. He does have reactive airway component on pulmonary function testing, however his pulmonary flows and volumes are essentially normal. Patient after the last office visit completed his cardiopulmonary exercise testing that showed some limitation on both pulmonary and cardiac sides with no specific etiologies noted. [facility] Surgical History H/O removal of cyst History of heart artery stent Family History Mother Primary cancer of bone marrow Father Prostate cancer Heart disease Social History Alcohol intake: current Alcohol intake frequency: holidays/special occasions only Patient Tobacco Use Status: Former Tobacco user Quit Date: 2013 Years Smoked: 30 +/- e-Cigarette/Vaping Use: Former Use Date or number of years quit: quit 2016 Review of Systems Const Denies daytime sleepiness, Denies excessive sweating, Denies fatigue, Denies fever(s), Denies lethargy, Denies malaise, Denies night sweats, Denies snoring and Denies weight loss Eyes Denies blurry vision and Denies itchy eyes ENT Denies nasal congestion, Denies post nasal drip, Denies sinus pain, Denies sinus pressure and Denies other ( Thrush) Card Denies chest pain, Denies pedal edema, Denies dyspnea, Denies orthopnea and Denies paroxysmal nocturnal dyspnea Resp Denies cough, Denies hemoptysis, Denies excessive phlegm production, Denies dyspnea, Denies snoring and Denies wheezing GI Denies abdominal pain and Denies heartburn Musc Denies myalgias, Denies arthralgias and Denies joint swelling Skin/Breast Denies rash Neuro Denies memory loss and Denies seizure-like activity Psych Denies abnormal sleep pattern, Denies anxiety and Denies memory loss Endo Denies excessive sweating, Denies fatigue and Denies heat intolerance Swapnil/Lymph Denies easy bruising Aller/Immun Denies itchy eyes, Denies seasonal rhinorrhea and Denies wheezing Physical Exam Vital Signs: Last Vital Signs Pulse 67 12/25/23 15:07 BP 112/64 12/25/23 15:07 Pulse Ox 98 12/25/23 15:07 Oxygen Delivery Method Room Air 12/25/23 15:07 BMI result Body Mass Index 29.0 Const General: no acute distress and alert Nutritional Appearance: not obese Orientation/consciousness: Other orientation findings ( oriented) HEENT Head: Yes atraumatic Eyes General: appearance normal, both eyes and all related structures Sclerae: sclerae normal EOM: EOMs intact bilaterally Neck Neck: Yes supple Lymphatic: no lymphadenopathy noted Resp Effort & Inspection: normal respiratory effort and no use of accessory muscles Auscultation: clear to auscultation bilaterally Cardio Rate: regular rate Rhythm: regular rhythm Heart sounds: no gallops, no murmurs and no rubs Skin General skin exam: other ( warm) Extrem General: No clubbing, No cyanosis and No edema Assessment & Plan Assessment & Plan (1) MI (dyspnea on exertion): Code(s): R06.00 - Dyspnea, unspecified (2) Restrictive ventilatory defect: Code(s): R94.2 - Abnormal results of pulmonary function studies (3) Reactive airway disease: Code(s): J45.909 - Unspecified asthma, uncomplicated Plan Overall essentially normal pulmonary workup with mild restrictive disease and bronchial reactivity. Continue on Anoro and albuterol MDI. Will refer to Pulmonary rehab. Orders: Orders Pulmonary Rehab Today R94.2 - Abnormal results of pulmonary function studies Coding Level of Care Code Est Pt Level 4 (27291) Diagnoses MI (dyspnea on exertion) R06.00 Restrictive ventilatory defect R94.2 Reactive airway disease J45.909
[2023-12-25 15:07] VITALS: BP 112/64; PULSE 67; O2SAT 98; BMI 29.0
== END 2023-12-25 15:27 | disposition home or self-care (01) ==
PROVIDERS: PCP Family Medicine; Visit Provider Internal Medicine Pulmonary Disease
DX: R06.00 Dyspnea, unspecified (principal); R94.2 Abnormal results of pulmonary function studies; J45.909 Unspecified asthma, uncomplicated
CPT/HCPCS: 99214

== ENCOUNTER → 2023-12-25 15:04 | Outpatient (BNVA) | payer MEDICARE, BC, SELFPAY | PROVIDERS: PCP Family Medicine; Visit Provider Internal Medicine Pulmonary Disease | DX: R06.00 Dyspnea, unspecified (principal); J45.909 Unspecified asthma, uncomplicated; R94.2 Abnormal results of pulmonary function studies | CPT/HCPCS: 99212 ==

== ENCOUNTER 2024-03-19 15:17 | Outpatient (AMB) | payer MEDICARE, BC, SELFPAY ==
--- NOTE | 2024-03-19 15:18 | MHC.OFFVIS ---
Vital Signs 03/19/24 15:19 Height 5 ft 6 in Weight 187 lb 6.287 oz BMI 30.2 BP 132/77 Blood Pressure Location Rt brachial Position Sitting Pulse 66 Pulse Source Doppler Pulse Oximetry (%) 96 Oxygen Delivery Method Room Air Intake Visit Reasons: Shortness of breath Allergies No Known Allergies [No Known Allergies*] Allergy (Verified 12/25/23 15:11) HPI HPI Shortness of breath: Details: 69-year-old gentleman, former approximately 40 pack-year smoker, with underlying history of CAD status post PCI, followed by Dr. Garsia, with left heart catheterization showing 65% mid-LAD lesion, followed for pulmonary component to his dyspnea on exertion. He does have reactive airway component on pulmonary function testing, however his pulmonary flows and volumes are essentially normal. Patient completed his cardiopulmonary exercise testing that showed some limitation on both pulmonary and cardiac sides with no specific etiologies noted. He continued on Anoro and albuterol MDI with reasonable control of his symptoms. He did start to be more active and now reports significantly improved endurance. [facility] Surgical History H/O removal of cyst History of heart artery stent Family History Mother Primary cancer of bone marrow Father Prostate cancer Heart disease Social History Alcohol intake: current Alcohol intake frequency: holidays/special occasions only Patient Tobacco Use Status: Former Tobacco user Quit Date: 2013 Years Smoked: 30 +/- e-Cigarette/Vaping Use: Former Use Date or number of years quit: quit 2016 Review of Systems Const Denies daytime sleepiness, Denies excessive sweating, Denies fatigue, Denies fever(s), Denies lethargy, Denies malaise, Denies night sweats, Denies snoring and Denies weight loss Eyes Denies blurry vision and Denies itchy eyes ENT Denies nasal congestion, Denies post nasal drip, Denies sinus pain, Denies sinus pressure and Denies other ( Thrush) Card Denies chest pain, Denies pedal edema, Denies dyspnea, Denies orthopnea and Denies paroxysmal nocturnal dyspnea Resp Denies cough, Denies hemoptysis, Denies excessive phlegm production, Denies dyspnea, Denies snoring and Denies wheezing GI Denies abdominal pain and Denies heartburn Musc Denies myalgias, Denies arthralgias and Denies joint swelling Skin/Breast Denies rash Neuro Denies memory loss and Denies seizure-like activity Psych Denies abnormal sleep pattern, Denies anxiety and Denies memory loss Endo Denies excessive sweating, Denies fatigue and Denies heat intolerance Swapnil/Lymph Denies easy bruising Aller/Immun Denies itchy eyes, Denies seasonal rhinorrhea and Denies wheezing Physical Exam Vital Signs: Last Vital Signs Pulse 66 03/19/24 15:19 BP 132/77 03/19/24 15:19 Pulse Ox 96 03/19/24 15:19 Oxygen Delivery Method Room Air 03/19/24 15:19 BMI result Body Mass Index 30.2 Const General: no acute distress and alert Nutritional Appearance: not obese Orientation/consciousness: Other orientation findings ( oriented) HEENT Head: Yes atraumatic Eyes General: appearance normal, both eyes and all related structures Sclerae: sclerae normal EOM: EOMs intact bilaterally Neck Neck: Yes supple Lymphatic: no lymphadenopathy noted Resp Effort & Inspection: normal respiratory effort and no use of accessory muscles Auscultation: clear to auscultation bilaterally Cardio Rate: regular rate Rhythm: regular rhythm Heart sounds: no gallops, no murmurs and no rubs Skin General skin exam: other ( warm) Extrem General: No clubbing, No cyanosis and No edema Assessment & Plan Assessment & Plan (1) Reactive airway disease: Code(s): J45.909 - Unspecified asthma, uncomplicated Category: Medical Plan: Well controlled on current regimen of Anoro and albuterol MDI. Continue current regimen. (2) MI (dyspnea on exertion): Code(s): R06.00 - Dyspnea, unspecified Category: Medical Plan: Significantly improved with increase in activity. Appears to have significant deconditioning component that is been getting better. Patient has been advised on slow incremental increase in his exercise level. Coding Level of Care Code Est Pt Level 4 (66875) Diagnoses Reactive airway disease J45.909 MI (dyspnea on exertion) R06.00
[2024-03-19 15:19] VITALS: BP 132/77; PULSE 66; O2SAT 96; BMI 30.2
== END 2024-03-19 15:32 | disposition home or self-care (01) ==
PROVIDERS: PCP Family Medicine; Visit Provider Internal Medicine Pulmonary Disease
DX: J45.909 Unspecified asthma, uncomplicated (principal); R06.00 Dyspnea, unspecified
CPT/HCPCS: 99214

== ENCOUNTER → 2024-03-19 15:17 | Outpatient (BNVA) | payer MEDICARE, BC, SELFPAY | PROVIDERS: PCP Family Medicine; Visit Provider Internal Medicine Pulmonary Disease | DX: J45.909 Unspecified asthma, uncomplicated (principal); R06.00 Dyspnea, unspecified | CPT/HCPCS: 99212 ==

== ENCOUNTER 2024-04-14 12:35 | Outpatient (AMB) | payer MEDICARE, BC, SELFPAY ==
--- NOTE | 2024-04-14 12:49 | MHC.OFFVIS ---
Vital Signs 04/14/24 12:52 Height 5 ft 6 in Weight 188 lb 4.396 oz BMI 30.4 BP 130/62 Blood Pressure Location Lt brachial Position Sitting Pulse 59 Pulse Source Pulse Oximeter Pulse Oximetry (%) 97 Oxygen Delivery Method Room Air Intake Visit Reasons: 4 mth f/up [employer] Required: No Accompanied by: Self / Same As Patient Allergies No Known Allergies [No Known Allergies*] Allergy (Verified 12/25/23 15:11) Medication List - Last Reconciled 04/14/24 by Julian Garsia MD albuterol sulfate 90 mcg/actuation 2 puffs inhalation QID PRN 90 days aspirin 81 mg PO DAILY atorvastatin 80 mg PO DAILY carvedilol 3.125 mg PO BID clopidogrel 75 mg PO DAILY lisinopril 2.5 mg PO DAILY nitroglycerin 0.4 mg sublingual Q5M PRN umeclidinium-vilanterol 62.5-25 mcg/actuation (Anoro Ellipta) 1 inh inhalation DAILY 90 days HPI Comments Details: Pleasant 68-year-old gentleman here for follow-up. He has background history of coronary artery disease and presented with inferior ST-elevation DC for which she underwent PCI to right coronary artery. Subsequent to that he was admitted with unstable angina and had PCI to diagonal artery. He has residual LAD stenosis which was medically managed. He has been doing well and has no exertional chest discomfort. Taking medications regularly. He has dyspnea on exertion in particular when he is going up hill. He was a former smoker and was vaping for 2 years also. He was referred to pulmonology and has been following with them regularly. 08/06/2023: Returns for follow-up. He has been experiencing more dyspnea on exertion. He has gained some weight and has not been exercising regularly. Apparently he was referred for exercise stress test by his primary care physician where he was able to exercise for 2 metabolic equivalents and stop because of shortness of breath. He subsequently had nuclear perfusion imaging which was normal. His returning and is complaining of shortness of breath. He does not have any significant chest discomfort. He is saying that pulmonology has told him that he does not have significant lung disease as cause for his dyspnea. He clearly has a lot of functional limitation. Previously we did not stent is LAD because it may involve a complex bifurcation stenting. He had residual disease in the LAD. 12/08/2023: He returns for follow-up. He was complaining of dyspnea on exertion and after discussion she was taken for diagnostic cardiac catheterization. Cardiac catheterization showed that he continues to have a moderate ostial LAD stenosis. This was retested with IFR and IFR was 0.91 quite similar to 2018. Given the fact that he had worsening dyspnea over the last few months and the fact that his coronary anatomy was unchanged it was felt that dyspnea is due to some other pathology. He is not returning and has been exercising and has lost some weight and is saying that his breathing has improved somewhat. He also is following with pulmonology and went a cardiopulmonary exercise stress test. I have explained to him that he may qualify for cardiac rehabilitation and he is interested in that. 04/14/2024: He returns for follow-up. He has been stable and trying to be more active. He is saying his breathing has improved with activity. No chest discomfort. Blood pressure is well controlled. Overall clinically stable. [facility] Surgical History H/O removal of cyst History of heart artery stent Family History Mother Primary cancer of bone marrow Father Prostate cancer Heart disease Social History Alcohol intake: current Alcohol intake frequency: holidays/special occasions only Patient Tobacco Use Status: Former Tobacco user Years Smoked: 30 +/- e-Cigarette/Vaping Use: Former Use Date or number of years quit: quit 2016 Physical Exam Vital Signs: Last Vital Signs Pulse 59 04/14/24 12:52 BP 130/62 04/14/24 12:52 Pulse Ox 97 04/14/24 12:52 Oxygen Delivery Method Room Air 04/14/24 12:52 BMI result Body Mass Index 30.4 GENERAL APPEARANCE: in no acute distress, pleasant. NECK: no carotid bruit, no jugular venous distention. SKIN: no suspicious lesions, warm and dry. HEART: no murmurs, regular rate and rhythm. LUNGS: clear to auscultation bilaterally. ABDOMEN: soft, nontender. EXTREMITIES: no edema. PERIPHERAL PULSES: equal. NEUROLOGIC: No gross deficits, AAO X 3 Assessment & Plan Assessment & Plan (1) Hypertension: Comment: Blood pressure control is good. Code(s): I10 - Essential (primary) hypertension Category: Medical Qualifiers: Hypertension type: essential hypertension Qualified Code(s): I10 - Essential (primary) hypertension (2) Hyperlipidemia: Code(s): E78.5 - Hyperlipidemia, unspecified Category: Medical Qualifiers: Hyperlipidemia type: unspecified Qualified Code(s): E78.5 - Hyperlipidemia, unspecified (3) Stable angina: Code(s): I20.89 - Other forms of angina pectoris Category: Medical Plan Pleasant 69 year gentleman with known history of coronary artery disease with previous RCA and diagonal PCI. He does have proximal LAD 50 60% stenosis with normal IFR of 0.91. He is complaining of dyspnea on exertion which was the reason he was taken back for cardiac catheterization and IFR was reperformed. He has been medically managed for coronary artery disease. His dyspnea is mostly due to deconditioning and he has been experiencing some improvement with exercise. He also started using inhalers prescribed by pulmonology and his breathing has improved. Clinically stable. He will see us back in 6 months. Thank you for allowing me to participate in the care of your patient. Please feel free to contact me if you have any questions. Medications: Refilled atorvastatin 80 mg PO DAILY 30 tabs 0RF lisinopril 2.5 mg PO DAILY 30 tabs 0RF Coding Level of Care Code Est Pt Level 4 (52998) Diagnoses Essential hypertension I10 Hypertension type: essential hypertension Hyperlipidemia, unspecified hyperlipidemia type E78.5 Hyperlipidemia type: unspecified Stable angina I20.89
[2024-04-14 12:52] VITALS: BP 130/62; PULSE 59; O2SAT 97; BMI 30.4
== END 2024-04-14 13:10 | disposition home or self-care (01) ==
PROVIDERS: PCP Family Medicine; Visit Provider Internal Medicine Cardiovascular Disease
DX: I10 Essential (primary) hypertension (principal); E78.5 Hyperlipidemia, unspecified; I20.89 Other forms of angina pectoris
CPT/HCPCS: 99214

== ENCOUNTER → 2024-04-14 12:35 | Outpatient (BNVA) | payer MEDICARE, BC, SELFPAY | PROVIDERS: PCP Family Medicine; Visit Provider Internal Medicine Cardiovascular Disease | DX: I10 Essential (primary) hypertension (principal); I20.89 Other forms of angina pectoris; E78.5 Hyperlipidemia, unspecified; Z95.5 Presence of coronary angioplasty implant and graft | CPT/HCPCS: 99212 ==

== ENCOUNTER 2024-09-24 10:55 | Outpatient (AMB) | payer MEDICARE, BC, SELFPAY ==
[2024-09-24 11:05] VITALS: BP 118/70; PULSE 73; O2SAT 97
--- NOTE | 2024-09-24 11:05 | A.OFFVIS_ITS ---
Vital Signs 09/24/24 11:05 Weight 190 lb 11.198 oz BP 118/70 Blood Pressure Location Rt brachial Position Sitting Pulse 73 Pulse Source Pulse Oximeter Pulse Oximetry (%) 97 Oxygen Delivery Method Room Air Intake Visit Reasons: Shortness of breath Allergies No Known Allergies [No Known Allergies*] Allergy (Verified 09/24/24 11:10) Medication List - Last Reconciled 09/24/24 by Blanca Moreau LPN albuterol sulfate 90 mcg/actuation 2 puffs inhalation QID PRN 90 days aspirin 81 mg PO DAILY atorvastatin 80 mg PO DAILY carvedilol 3.125 mg PO BID clopidogrel 75 mg PO DAILY lisinopril 2.5 mg PO DAILY nitroglycerin 0.4 mg sublingual Q5M PRN umeclidinium-vilanterol 62.5-25 mcg/actuation (Anoro Ellipta) 1 inh inhalation DAILY 90 days HPI HPI Shortness of breath: Details: 69-year-old gentleman, former approximately 40 pack-year smoker, with underlying history of CAD status post PCI, followed by Dr. Garsia, with left heart catheterization showing 65% mid-LAD lesion, followed for pulmonary component to his dyspnea on exertion. He does have reactive airway component on pulmonary function testing, however his pulmonary flows and volumes are essentially normal. Patient completed his cardiopulmonary exercise testing that showed some limitation on both pulmonary and cardiac sides with no specific etiologies noted. He continued on Anoro and albuterol MDI with reasonable control of his symptoms. Patient also continues with graded exercise program with significant improvement in his exercise tolerance. [facility] Surgical History H/O removal of cyst History of heart artery stent Family History Mother Primary cancer of bone marrow Father Prostate cancer Heart disease Social History Alcohol intake: current Alcohol intake frequency: holidays/special occasions only Patient Tobacco Use Status: Former Tobacco user Years Smoked: 30 +/- e-Cigarette/Vaping Use: Former Use Date or number of years quit: quit 2016 Review of Systems Const Denies daytime sleepiness, Denies excessive sweating, Denies fatigue, Denies fever(s), Denies lethargy, Denies malaise, Denies night sweats, Denies snoring and Denies weight loss Eyes Denies blurry vision and Denies itchy eyes ENT Denies nasal congestion, Denies post nasal drip, Denies sinus pain, Denies sinus pressure and Denies other ( Thrush) Card Denies chest pain, Denies pedal edema, Denies dyspnea, Denies orthopnea and Denies paroxysmal nocturnal dyspnea Resp Denies cough, Denies hemoptysis, Denies excessive phlegm production, Denies dyspnea, Denies snoring and Denies wheezing GI Denies abdominal pain and Denies heartburn Musc Denies myalgias, Denies arthralgias and Denies joint swelling Skin/Breast Denies rash Neuro Denies memory loss and Denies seizure-like activity Psych Denies abnormal sleep pattern, Denies anxiety and Denies memory loss Endo Denies excessive sweating, Denies fatigue and Denies heat intolerance Swapnil/Lymph Denies easy bruising Aller/Immun Denies itchy eyes, Denies seasonal rhinorrhea and Denies wheezing Physical Exam Vital Signs: Last Vital Signs Pulse 73 09/24/24 11:05 BP 118/70 09/24/24 11:05 Pulse Ox 97 09/24/24 11:05 Oxygen Delivery Method Room Air 09/24/24 11:05 Const General: no acute distress and alert Nutritional Appearance: not obese Orientation/consciousness: Other orientation findings ( oriented) HEENT Head: Yes atraumatic Eyes General: appearance normal, both eyes and all related structures Sclerae: sclerae normal EOM: EOMs intact bilaterally Neck Neck: Yes supple Lymphatic: no lymphadenopathy noted Resp Effort & Inspection: normal respiratory effort and no use of accessory muscles Auscultation: clear to auscultation bilaterally Cardio Rate: regular rate Rhythm: regular rhythm Heart sounds: no gallops, no murmurs and no rubs Skin General skin exam: other ( warm) Extrem General: No clubbing, No cyanosis and No edema Assessment & Plan Assessment & Plan (1) Restrictive ventilatory defect: Code(s): R94.2 - Abnormal results of pulmonary function studies Category: Medical Plan: Well controlled on Anoro and albuterol MDI. Continue current regimen. (2) MI (dyspnea on exertion): Code(s): R06.00 - Dyspnea, unspecified Category: Medical Plan: Improving significantly with graded exercise program. Coding Level of Care Code Est Pt Level 4 (66640) Diagnoses Restrictive ventilatory defect R94.2 MI (dyspnea on exertion) R06.00
== END 2024-09-24 11:22 | disposition home or self-care (01) ==
PROVIDERS: PCP Family Medicine; Visit Provider Internal Medicine Pulmonary Disease
DX: R94.2 Abnormal results of pulmonary function studies (principal); R06.00 Dyspnea, unspecified
CPT/HCPCS: 99214

== ENCOUNTER → 2024-09-24 10:55 | Outpatient (BNVA) | payer MEDICARE, BC, SELFPAY | PROVIDERS: PCP Family Medicine; Visit Provider Internal Medicine Pulmonary Disease | DX: R94.2 Abnormal results of pulmonary function studies (principal); R06.00 Dyspnea, unspecified | CPT/HCPCS: 99212 ==

== ENCOUNTER 2025-02-08 14:51 | Outpatient (AMB) | payer MEDICARE, BC, SELFPAY ==
[2025-02-08 14:55] VITALS: BP 110/70; PULSE 65
--- NOTE | 2025-02-08 14:55 | A.OFFVIS_ITS ---
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 He has background history of coronary artery disease and presented with inferior ST-elevation LA for which she underwent PCI to right coronary artery. Subsequent to that he was admitted with unstable angina and had PCI to diagonal artery. He has residual LAD stenosis which was medically managed. He has been doing well and has no exertional chest discomfort. Taking medications regularly. He has dyspnea on exertion in particular when he is going up hill. He was a former smoker and was vaping for 2 years also. He was referred to pulmonology and has been following with them regularly. 08/06/2023: Returns for follow-up. He has been experiencing more dyspnea on exertion. He has gained some weight and has not been exercising regularly. Apparently he was referred for exercise stress test by his primary care physician where he was able to exercise for 2 metabolic equivalents and stop because of shortness of breath. He subsequently had nuclear perfusion imaging which was normal. His returning and is complaining of shortness of breath. He does not have any significant chest discomfort. He is saying that pulmonology has told him that he does not have significant lung disease as cause for his dyspnea. He clearly has a lot of functional limitation. Previously we did not stent is LAD because it may involve a complex bifurcation stenting. He had residual disease in the LAD. 12/08/2023: He returns for follow-up. He was complaining of dyspnea on exertion and after discussion she was taken for diagnostic cardiac catheterization. Cardiac catheterization showed that he continues to have a moderate ostial LAD stenosis. This was retested with IFR and IFR was 0.91 quite similar to 2018. Given the fact that he had worsening dyspnea over the last few months and the fact that his coronary anatomy was unchanged it was felt that dyspnea is due to some other pathology. He is not returning and has been exercising and has lost some weight and is saying that his breathing has improved somewhat. He also is following with pulmonology and went a cardiopulmonary exercise stress test. I have explained to him that he may qualify for cardiac rehabilitation and he is interested in that. 04/14/2024: He returns for follow-up. He has been stable and trying to be more active. He is saying his breathing has improved with activity. No chest discomfort. Blood pressure is well controlled. Overall clinically stable. 02/08/2025: He is here for follow-up. Denying any chest discomfort. He has not been active during winter time. He is saying he is continues to get shortness of breath with activities. His weight has fluctuated and he gained weight up to 200 lb during winter and now down to 186 lb. He is saying he is going to start exercising as the weather is getting warmer. PENDING SALE TO [facility] Surgical History H/O removal of cyst History of heart artery stent Family History Mother Primary cancer of bone marrow Father Prostate cancer Heart disease Social History Alcohol intake: current Alcohol intake frequency: holidays/special occasions only Patient Tobacco Use Status: Former Tobacco user Years Smoked: 30 +/- e-Cigarette/Vaping Use: Former Use Date or number of years quit: quit 2016 Review of Systems Const Denies chills, Denies fatigue, Denies fever(s), Denies frequent falls, Denies weakness, Denies weight gain and Denies weight loss ENT Denies dizziness Card Denies chest pain, Denies leg edema, Denies lightheadedness, Denies palpitations, Denies dyspnea and Denies dyspnea on exertion Resp Denies cough, Denies dyspnea and Denies dyspnea on exertion GI Denies hematochezia Musc Denies abnormal gait, Denies muscle weakness, Denies numbness, Denies radiating pain into limb and Denies tingling Neuro Denies abnormal gait, Denies dizziness, Denies frequent falls, Denies numbness, Denies tingling and Denies weakness Endo Denies fatigue and Denies palpitations Physical Exam Vital Signs: Last Vital Signs Pulse 65 02/08/25 14:55 BP 110/70 02/08/25 14:55 BMI result Body Mass Index 30.0 GENERAL APPEARANCE: in no acute distress, pleasant. NECK: no carotid bruit, no jugular venous distention. SKIN: no suspicious lesions, warm and dry. HEART: no murmurs, regular rate and rhythm. LUNGS: clear to auscultation bilaterally. ABDOMEN: soft, nontender. EXTREMITIES: no edema. PERIPHERAL PULSES: equal. NEUROLOGIC: No gross deficits, AAO X 3 Office Procedures EKG Details: Sinus rhythm 65 beats per minute, normal ECG, QTC 395 milliseconds. [id number], Complete Assessment & Plan Assessment & Plan (1) Stable angina: Code(s): I20.89 - Other forms of angina pectoris Category: Medical (2) MI (dyspnea on exertion): Code(s): R06.00 - Dyspnea, unspecified Category: Medical (3) Hypertension: Comment: Blood pressure control is good. Code(s): I10 - Essential (primary) hypertension Category: Medical Qualifiers: Hypertension type: essential hypertension Qualified Code(s): I10 - Es sential (primary) hypertension (4) Hyperlipidemia: Code(s): E78.5 - Hyperlipidemia, unspecified Category: Medical Qualifiers: Hyperlipidemia type: unspecified Qualified Code(s): E78.5 - Hyperlipidemia, unspecified Plan Pleasant 69-year-old gentleman who is here for follow-up. He has background history of tobacco abuse and known coronary artery disease with previous RCA PCI for inferior wall LA. He also had diagonal PCI due to unstable angina. He has approximately 60% proximal and ostial LAD stenosis which was previously IFR negative. He is denying any anginal symptoms. I have advised him to become more active physically during summertime. My hope is that his dyspnea will improve with a strategy. If he has any anginal symptoms then we will consider stress testing versus repeat angio. I have advised him to stop the aspirin and continue Plavix monotherapy. Thank you for allowing me to participate in the care of your patient. Please feel free to contact me if you have any questions. Medications: Discontinued aspirin Discontinued Reason: Doctor's Order 81 mg PO DAILY 90 tabs 3RF Coding Level of Care Code Est Pt Level 4 (53371) Diagnoses Stable angina I20.89 MI (dyspnea on exertion) R06.00 Essential hypertension I10 Hypertension type: essential hypertension Hyperlipidemia, unspecified hyperlipidemia type E78.5 Hyperlipidemia type: unspecified CPT Codes EKG - CPT: 76250-[id number], Complete ([id number])
== END 2025-02-08 15:19 | disposition home or self-care (01) ==
LOC: HO.HCS 14:51
PROVIDERS: PCP Family Medicine; Visit Provider Internal Medicine Cardiovascular Disease
DX: I20.89 Other forms of angina pectoris (principal); R06.00 Dyspnea, unspecified; I10 Essential (primary) hypertension; E78.5 Hyperlipidemia, unspecified
CPT/HCPCS: 93010; 99214

== ENCOUNTER → 2025-02-08 14:51 | Outpatient (BNVA) | payer MEDICARE, BC, SELFPAY | PROVIDERS: PCP Family Medicine; Visit Provider Internal Medicine Cardiovascular Disease | DX: I20.89 Other forms of angina pectoris (principal); I10 Essential (primary) hypertension; R06.00 Dyspnea, unspecified; E78.5 Hyperlipidemia, unspecified | CPT/HCPCS: 93005; 99212 ==

== ENCOUNTER 2025-03-11 09:32 | Outpatient (AMB) | payer MEDICARE, BC, SELFPAY ==
--- NOTE | 2025-03-11 09:36 | A.OFFVIS_ITS ---
Vital Signs 03/11/25 09:37 Height 5 ft 6 in Weight 187 lb 6.287 oz BMI 30.2 BP 112/74 Blood Pressure Location Lt brachial Position Sitting Pulse 66 Intake Visit Reasons: Elevated LFTs Intake Note: [place] presents in the office as a new patient for elevated LFTs. CC: Elevated liver enzymes - pcp sent him here to discuss! Allergies No Known Allergies [No Known Allergies*] Allergy (Verified 09/24/24 11:10) HPI Comments Details: 70 y.o M with PMH of CAD, HTN, ILD, who is here for elevated LFT. Has been noted to have fluctuating LFTs since at least 2018. ALT>AST. Drinks etOH socially. Every weekend, not more than 1-2 drink per sitting. Does not take any OTC/CAM. Has known HLD, HTN and CAD. No DM that he is aware of. BMI 30. No fam hx of liver disease. PCP records show normal ferritin and hep serologies. Also has significant pulm disease sees dr solis. [facility] Surgical History (Updated 03/11/25 @ 09:38 by MARIBELL Chopra) Hx of colonoscopy H/O removal of cyst History of heart artery stent Family History Mother Primary cancer of bone marrow Father Prostate cancer Heart disease Social History Alcohol intake: current Alcohol intake frequency: holidays/special occasions only Patient Tobacco Use Status: Former Tobacco user Years Smoked: 30 +/- e-Cigarette/Vaping Use: Former Use Date or number of years quit: quit 2016 Review of Systems Const All systems reviewed & are unremarkable except as noted in HPI and below Physical Exam Vital Signs: Last Vital Signs Pulse 66 03/11/25 09:37 BP 112/74 03/11/25 09:37 BMI result Body Mass Index 30.2 No apparent distress Nonicteric Abdomen soft, no hepatomegaly, nondistended Alert and oriented x3, normal gait Assessment & Plan Assessment & Plan (1) Elevated LFTs: Code(s): R79.89 - Other specified abnormal findings of blood chemistry Category: Medical (2) Reactive airway disease: Code(s): J45.909 - Unspecified asthma, uncomplicated Category: Medical (3) MI (dyspnea on exertion): Code(s): R06.00 - Dyspnea, unspecified Category: Medical Plan DDx include MASH, iron overload, AATD fariba given concurrent lung disease, AIH. Will also get updated CBC and CMP to calculate Fib -4. Plan: - Labs and US ordered - Follow up in 2 months Orders: Orders Alpha Fetoprotein Today R7.89 - Other specified abnormal findings of blood chemistry SUKHDEEP Reflex Titer and Pattern Today R7. - Other specified abnormal findings of blood chemistry Ceruloplasmin Today R7. - Other specified abnormal findings of blood chemistry Complete Blood Count no Diff Today R7. - Other specified abnormal findings of blood chemistry HIV Ab/Ag Today R7. - Other specified abnormal findings of blood chemistry Mitochondrial Antibody Today R7. - Other specified abnormal findings of blood chemistry Phosphatidylethanol, Blood Today R79. - Other specified abnormal findings of blood chemistry Smooth Muscle Antibody Today R79. - Other specified abnormal findings of blood chemistry TSH reflex Free T4 Today R79. - Other specified abnormal findings of blood chemistry Alpha 1 Anti-trypsin Today R7. - Other specified abnormal findings of blood chemistry Comprehensive Met. Panel Today R7. - Other specified abnormal findings of blood chemistry DNA Analysis Hemochromatosis Today E83.19 - Other disorders of iron metabolism, R7. - Other specified abnormal findings of blood chemistry Ferritin Today R79. - Other specified abnormal findings of blood chemistry Hemoglobin A1c Today R79.89 - Other specified abnormal findings of blood chemistry Immunoglobulin A Today R79.89 - Other specified abnormal findings of blood chemistry Immunoglobulin G Today R79.89 - Other specified abnormal findings of blood chemistry IRON PROFILE Today R79.89 - Other specified abnormal findings of blood chemistry Lipid Panel Today R79.89 - Other specified abnormal findings of blood chemistry Liver Kidney Microsomal Ab Today R79.89 - Other specified abnormal findings of blood chemistry Prothrombin Time INR Today R79.89 - Other specified abnormal findings of blood chemistry Transglutaminase IgA Today R79.89 - Other specified abnormal findings of blood chemistry US abdomen complete Today R79. - Other specified abnormal findings of blood chemistry Coding Level of Care Code New Pt Level 4 (13454) Diagnoses Elevated LFTs Reactive airway disease J45.909 MI (dyspnea on exertion) R06.00
[2025-03-11 09:37] VITALS: BP 112/74; PULSE 66; BMI 30.2
== END 2025-03-11 10:12 | disposition home or self-care (01) ==
LOC: HO.HGI 09:32
PROVIDERS: PCP Family Medicine; Visit Provider Internal Medicine
DX: R79.89 Other specified abnormal findings of blood chemistry (principal); J45.909 Unspecified asthma, uncomplicated; R06.00 Dyspnea, unspecified
CPT/HCPCS: 99204

== ENCOUNTER 2025-03-11 09:32 | Outpatient (REF) | payer MEDICARE, BC, SELFPAY ==
[2025-03-11 11:01] LABS: Hematocrit 50.8 % (42.0-52.0); Hemoglobin 17.1 g/dl (14.0-18.0); Mean Corpuscular HGB Conc 33.7 g/dl (31.0-36.0); Mean Corpuscular Hemoglobin 28.8 pg (27.0-33.0); Mean Corpuscular Volume 85.7 fL (80.0-98.0); Platelet Count 162 X10*3/uL (160-400); Red Blood Count 5.93 X10*6/uL (4.60-5.80); Red Cell Distribution Width 13.1 % (11.0-16.0); White Blood Count 6.4 X10*3/uL (4.8-10.8)
[2025-03-11 11:09] LABS: INTERNATIONAL NORM RATIO 1.2 (0.9-1.1); Prothrombin Time 13.7 SEC (10.9-12.4)
[2025-03-11 11:16] LABS: Estimated Average Glucose 105 mg/dL; Hemoglobin A1C 144.3074 umol/L; Hemoglobin A1c % 5.3 % (<6.0); Total Hemoglobin (HGBA1C) 4220.6719 umol/L
[2025-03-11 11:49] LABS: HIV AB/AG Nonreactive (Nonreactive); HIV Num 1 0.11 S/CO (0.00-0.99)
[2025-03-11 11:50] LABS: Alanine Aminotransferase 52 U/L (0-40); Albumin Level 4.4 g/dL (3.5-5.0); Alkaline Phosphatase 91 U/L (39-117); Anion Gap 8 (12-20); Aspartate Amino Transferase 42 U/L (5-37); Bilirubin Total 1.4 mg/dL (0.0-1.0); Blood Urea Nitrogen 19 mg/dL (9-16); Calcium 9.3 mg/dL (8.4-10.2); Carbon Dioxide 28 mmol/L (22-29); Chloride 105 mmol/L (96-108); Cholesterol 83 mg/dL (<200); Estimated Glomerular Filt Rate > 60; Ferritin 93 ng/mL (20-250); Glucose Random 93 mg/dL (60-115); HDL Cholesterol 35 mg/dL (>40); Iron 96 mcg/dL (45-160); LDL Cholesterol Calculated 34 mg/dL (<100); Percent Iron Saturation 31 % (15-50); Potassium 4.5 mmol/L (3.3-5.1); Sodium 136 mmol/L (135-145); TSH reflex Free T4 0.88 uIU/mL (0.32-4.0); Total Iron Binding Capacity 307 mcg/dL (228-428); Total Protein 7.2 g/dL (6.5-8.0); Triglycerides 70 mg/dL (<150); Unsaturated Iron Binding 211 ug/dL
[2025-03-14 14:23] LABS: Immunoglobulin A 391 mg/dL (70-320); Immunoglobulin G 992 mg/dL (600-1540)
[2025-03-14 14:53] LABS: Alpha 1 Anti-trypsin 157 mg/dL (83-199); Ceruloplasmin 25 mg/dL (14-30)
[2025-03-14 21:33] LABS: Transglutaminase IgA <1.0 U/mL
[2025-03-15 13:18] LABS: Alpha Fetoprotein 2.9 ng/mL (<6.1); Mitochondrial Antibodies NEGATIVE (NEGATIVE)
[2025-03-15 15:03] LABS: ANA Pattern 2 Nuclear, Homogeneous; Anti Nuclear Antibody Pattern Nuclear, Nucleolar; Anti Nuclear Antibody Screen POSITIVE (NEGATIVE)
[2025-03-15 18:29] LABS: Liver Kidney Microsomal Ab <=20.0 U (<=20.0); Smooth Muscle Antibody <20 U (<20)
[2025-03-18 09:10] LABS: PEth Comments SEE COMMENTS
[2025-03-18 09:11] LABS: Phosphatidylethanol 16:0-18:1 NEGATIVE; Phosphatidylethanol 16:0-18:2 NEGATIVE
== END 2025-03-11 09:33 | disposition home or self-care (01) ==
LOC: HO.LAB 09:32
PROVIDERS: PCP Family Medicine; Visit Provider Internal Medicine
DX: R79.89 Other specified abnormal findings of blood chemistry (principal); Z79.899 Other long term (current) drug therapy; E83.19 Other disorders of iron metabolism
CPT/HCPCS: 36415; 80053; 80061; 80321; 81256; 82103; 82105; 82390; 82728; 82784; 83036; 83540; 84443; 85027; 85610; 86015; 86038; 86039; 86364; 86376; 86381; 87389; 99202

== ENCOUNTER 2025-03-16 14:23 | Outpatient (AMB) | payer MEDICARE, BC, SELFPAY ==
[2025-03-16 14:24] VITALS: BP 122/78; PULSE 72; O2SAT 98; BMI 30.3
--- NOTE | 2025-03-16 14:24 | A.OFFVIS_ITS ---
Vital Signs 03/16/25 14:24 Height 5 ft 6 in Weight 188 lb BMI 30.3 BP 122/78 Blood Pressure Location Rt brachial Position Sitting Pulse 72 Pulse Source Pulse Oximeter Pulse Oximetry (%) 98 Oxygen Delivery Method Room Air Intake Visit Reasons: Shortness of breath Allergies No Known Allergies [No Known Allergies*] Allergy (Verified 03/16/25 14:29) HPI HPI Shortness of breath: Details: 70-year-old gentleman, former approximately 40 pack-year smoker, with underlying history of CAD status post PCI, followed by Dr. Garsia, with left heart catheterization showing 65% mid-LAD lesion, followed for pulmonary component to his dyspnea on exertion. He does have reactive airway component on pulmonary function testing, however his pulmonary flows and volumes are essentially normal. Patient completed his cardiopulmonary exercise testing that showed some limitation on both pulmonary and cardiac sides with no specific etiologies noted. He continued on Anoro and albuterol MDI with reasonable control of his symptoms. Patient also continues with graded exercise program with significant improvement in his exercise tolerance. No significant changes since prior visit. He is working on losing weight. [facility] Surgical History (Updated 03/11/25 @ 09:38 by MARIBELL Chopra) Hx of colonoscopy H/O removal of cyst History of heart artery stent Family History Mother Primary cancer of bone marrow Father Prostate cancer Heart disease Social History Alcohol intake: current Alcohol intake frequency: holidays/special occasions only Patient Tobacco Use Status: Former Tobacco user Years Smoked: 30 +/- e-Cigarette/Vaping Use: Former Use Date or number of years quit: quit 2016 Review of Systems Const Denies daytime sleepiness, Denies excessive sweating, Denies fatigue, Denies fever(s), Denies lethargy, Denies malaise, Denies night sweats, Denies snoring and Denies weight loss Eyes Denies blurry vision and Denies itchy eyes ENT Denies nasal congestion, Denies post nasal drip, Denies sinus pain, Denies sinus pressure and Denies other ( Thrush) Card Denies chest pain, Denies pedal edema, Denies dyspnea, Denies orthopnea and Denies paroxysmal nocturnal dyspnea Resp Denies cough, Denies hemoptysis, Denies excessive phlegm production, Denies dyspnea, Denies snoring and Denies wheezing GI Denies abdominal pain and Denies heartburn Musc Denies myalgias, Denies arthralgias and Denies joint swelling Skin/Breast Denies rash Neuro Denies memory loss and Denies seizure-like activity Psych Denies abnormal sleep pattern, Denies anxiety and Denies memory loss Endo Denies excessive sweating, Denies fatigue and Denies heat intolerance Swapnil/Lymph Denies easy bruising Aller/Immun Denies itchy eyes, Denies seasonal rhinorrhea and Denies wheezing Physical Exam Vital Signs: Last Vital Signs Pulse 72 03/16/25 14:24 BP 122/78 03/16/25 14:24 Pulse Ox 98 03/16/25 14:24 Oxygen Delivery Method Room Air 03/16/25 14:24 BMI result Body Mass Index 30.3 Const General: no acute distress and alert Nutritional Appearance: not obese Orientation/consciousness: Other orientation findings ( oriented) HEENT Head: Yes atraumatic Eyes General: appearance normal, both eyes and all related structures Sclerae: sclerae normal EOM: EOMs intact bilaterally Neck Neck: Yes supple Lymphatic: no lymphadenopathy noted Resp Effort & Inspection: normal respiratory effort and no use of accessory muscles Auscultation: clear to auscultation bilaterally Cardio Rate: regular rate Rhythm: regular rhythm Heart sounds: no gallops, no murmurs and no rubs Skin General skin exam: other ( warm) Extrem General: No clubbing, No cyanosis and No edema Assessment & Plan Assessment & Plan (1) Reactive airway disease: Code(s): J45.909 - Unspecified asthma, uncomplicated Category: Medical Plan: Controlled on current regimen of Anoro and albuterol MDI. Continue current regimen. (2) MI (dyspnea on exertion): Code(s): R06.00 - Dyspnea, unspecified Category: Medical Plan: Improving with graded exercise program. Coding Level of Care Code Est Pt Level 4 (43394) Diagnoses Reactive airway disease J45.909 MI (dyspnea on exertion) R06.00
== END 2025-03-16 14:40 | disposition home or self-care (01) ==
LOC: HO.HPS 14:24
PROVIDERS: PCP Family Medicine; Visit Provider Internal Medicine Pulmonary Disease
DX: J45.909 Unspecified asthma, uncomplicated (principal); R06.00 Dyspnea, unspecified
CPT/HCPCS: 99214

== ENCOUNTER → 2025-03-16 14:23 | Outpatient (BNVA) | payer MEDICARE, BC, SELFPAY | PROVIDERS: PCP Family Medicine; Visit Provider Internal Medicine Pulmonary Disease | DX: J45.909 Unspecified asthma, uncomplicated (principal); R06.00 Dyspnea, unspecified; Z87.891 Personal history of nicotine dependence | CPT/HCPCS: 99212 ==

== ENCOUNTER 2025-04-05 11:36 | Outpatient (REF) | payer MEDICARE, BC, SELFPAY ==
[2025-04-06 20:18] LABS: Antibody to SS-A Antigen <1.0 NEG AI (<1.0 NEG); Antibody to SS-B Antigen <1.0 NEG AI (<1.0 NEG); Myeloperoxidase Antibody <1.0 AI; Proteinase 3 PR3 Antibodies <1.0 AI; Scleroderma 70 Antibody <1.0 NEG AI (<1.0 NEG)
[2025-04-08 08:22] LABS: DNAds, Crithidia Antibody Negative (Negative)
== END 2025-04-05 11:37 | disposition home or self-care (01) ==
LOC: HO.LAB 11:36
PROVIDERS: PCP Family Medicine; Visit Provider Internal Medicine
DX: R76.8 Other specified abnormal immunological findings in serum (principal)
CPT/HCPCS: 36415; 84182; 86021; 86235; 86255

== ENCOUNTER 2025-04-27 07:39 | Outpatient (REF) | payer MEDICARE, BC, SELFPAY ==
--- NOTE | ~2025-04-27 | US_ITS ---
EXAMINATION: US ABDOMEN HISTORY: R79.89 - Other specified abnormal findings of blood chemistry TECHNIQUE: Real-time grayscale ultrasound imaging of the abdomen was performed and images were reviewed. COMPARISON: There are no prior studies available for comparison. FINDINGS: Liver: The liver is normal in size. The liver demonstrates increased echotexture, consistent with steatosis. No focal mass or intrahepatic biliary ductal dilatation is identified. There is normal hepatopedal flow in the portal vein. Gallbladder and biliary tree: The gallbladder is unremarkable, without evidence of calculi, wall thickening, or pericholecystic fluid. There is no sonographic Velez sign. The common bile duct is normal in caliber measuring 4 mm. Kidneys: The right kidney measures 10.9 cm in length. The left kidney measures 8.3 cm in length. The kidneys are unremarkable, without evidence of masses, hydronephrosis, or calculi. Pancreas: The pancreas is obscured by bowel gas. Spleen: The spleen is normal in size and contour, measuring 11.9 cm in length. Abdominal aorta and inferior vena cava: The visualized portions of the abdominal aorta and inferior vena cava are normal in caliber. There is no free fluid in the abdomen. US/US abdomen complete IMPRESSION: Hepatic steatosis. Limited visualization of the pancreas. Electronically signed by: Zeyad Rich MD 04/27/2025 09:03 AM EDT
== END 2025-04-27 07:40 | disposition home or self-care (01) ==
LOC: HO.US 07:39
PROVIDERS: Visit Provider Internal Medicine
DX: R79.89 Other specified abnormal findings of blood chemistry (principal)
CPT/HCPCS: 76700

== ENCOUNTER → 2025-04-27 07:40 | Outpatient (BNV) | payer MEDICARE, BC, SELFPAY | PROVIDERS: Visit Provider Radiology Diagnostic Radiology | DX: K76.0 Fatty (change of) liver, not elsewhere classified (principal) | CPT/HCPCS: 76700 ==

== ENCOUNTER 2025-05-11 11:21 | Outpatient (AMB) | payer MEDICARE, BC, SELFPAY ==
--- NOTE | 2025-05-11 11:23 | A.OFFVIS_ITS ---
Vital Signs 05/11/25 11:35 Height 5 ft 6 in Weight 182 lb 15.739 oz BMI 29.5 BP 107/68 Blood Pressure Location Lt brachial Position Sitting Pulse 59 Intake Visit Reasons: 2 month follow up Intake Note: [place] presents in the office as a 2 month follow up. CC: NO concerns today! Wellness Coordinator Required: No Allergies No Known Allergies (No Known Allergies*) Allergy (Verified 05/11/25 11:36) HPI Comments Details: 70 y.o M with PMH of CAD, HTN, ILD, who is here for elevated LFT. Has been noted to have fluctuating LFTs since at least 2018. ALT>AST. Drinks etOH socially. Every weekend, not more than 1-2 drink per sitting. Does not take any OTC/CAM. Has known HLD, HTN and CAD. No DM that he is aware of. BMI 30. No fam hx of liver disease. PCP records show normal ferritin and hep serologies. Also has significant pulm disease sees dr solis. 05/11/25: Here for follow up. Labs reviewed. Elevated LFTs likely 2/2 fatty liver however SUKHDEEP is significantly elevated and can not exclude an underlying auto immune disorder with LFTs as bystander. Pt has appt with [facility] and will be looking at other local rheum offices for sooner appt. He does report L sided hip pain the morning. He has also been noting blurred vision in the mornign for 10-15 mins before things get back into focus. Has not seen an society editor or security public safety officer yet. Additionally, also gets intermittent itching in his palms lasting for half a day - this comes and goes. Does not recall seeing yellow eyes. In terms of CRC screening, last cologuard was almost 5 years ago. He does not think he has had a follow up screening since then. US Abd Hepatic steatosis. Limited visualization of the pancreas. PFSH Surgical History Hx of colonoscopy H/O removal of cyst History of heart artery stent Family History Mother Primary cancer of bone marrow Father Prostate cancer Heart disease Social History Alcohol intake: current Alcohol intake frequency: holidays/special occasions only Patient Tobacco Use Status: Former Tobacco user Years Smoked: 30 +/- e-Cigarette/Vaping Use: Former Use Date or number of years quit: quit 2016 Review of Systems Const All systems reviewed & are unremarkable except as noted in HPI and below Physical Exam Vital Signs: Last Vital Signs Pulse 59 05/11/25 11:35 BP 107/68 05/11/25 11:35 BMI result Body Mass Index 29.5 No apparent distress Nonicteric Abdomen soft, nondistended Alert and oriented x3, normal gait Assessment & Plan Assessment & Plan (1) Elevated LFTs: Code(s): R79.89 - Other specified abnormal findings of blood chemistry Category: Medical (2) SUKHDEEP positive: Code(s): R76.8 - Other specified abnormal immunological findings in serum Category: Medical (3) Pruritus: Code(s): L29.9 - Pruritus, unspecified Category: Medical (4) Encounter for colorectal cancer screening: Code(s): Z12.11 - Encounter for screening for malignant neoplasm of colon; Z12.12 - Encounter for screening for malignant neoplasm of rectum Category: Medical Plan 1. ELevated LFTs Discussed with the patient that this is likely secondary to fatty liver disease. However, given his elevated SUKHDEEP and report of pruritus, low threshold to proceed with MRI abdomen to rule out PSC. Plan: -MRI ordered 2. Elevated SUKHDEEP He will be seeing a art glass setter through [facility] next year. Patient reports he will also be looking at other Rheumatology offices in the area to see if we can get a sooner appointment. Happy to facilitate a referral if he prefers to switch. 3. Colorectal cancer screening Patient will confirm with his PCP about most recent Cologuard. If he is due, would strongly recommend proceeding with a colonoscopy this time, instead of a Cologuard, given advanced age and high pretest probability of polyps in the colon, which the cologuard is NOT powered to detect. He has hx of CAD PCI >5y ago but is hesitant to come off DAPT. Despite recommendation for plavix monotherapy at last cardiology visit, he continues on ASA/plavix. I reassured him that he only needs to hold the plavix but he requests to check with his web architect before booking the colo. Plan: - PEG prep reviewed with the pt and instructions handed out - Will send msg to cardiology re plavix hold as per his request - Iva to be booked Follow up after colo Orders: Orders MR abdomen wo/w con Today L29.9 - Pruritus, unspecified, R79.89 - Other specified abnormal findings of blood chemistry Medications: New peg 3350-electrolytes 236-22.74-6.74 -5.86 gram (Golytely) as per split prep instructions, until fecal effluent is clear 240 mL PO Q10M 4,000 mL 0RF colonoscopy Coding Level of Care Code Est Pt Level 4 (41470) Complex EM visit Add On G2211 Diagnoses Elevated LFTs R79.89 SUKHDEEP positive R76.8 Pruritus L29.9 Encounter for colorectal cancer screening Z12.11; Z12.12
[2025-05-11 11:35] VITALS: BP 107/68; PULSE 59; BMI 29.5
== END 2025-05-11 12:55 | disposition home or self-care (01) ==
LOC: HO.HGI 11:22
PROVIDERS: PCP Family Medicine; Visit Provider Internal Medicine
DX: R79.89 Other specified abnormal findings of blood chemistry (principal); R76.8 Other specified abnormal immunological findings in serum; L29.9 Pruritus, unspecified; Z12.12 Encounter for screening for malignant neoplasm of rectum
CPT/HCPCS: 99214; G2211

== ENCOUNTER → 2025-05-11 11:21 | Outpatient (BNVA) | payer MEDICARE, BC, SELFPAY | PROVIDERS: PCP Family Medicine; Visit Provider Internal Medicine | DX: R79.89 Other specified abnormal findings of blood chemistry (principal); R76.8 Other specified abnormal immunological findings in serum; L29.9 Pruritus, unspecified | CPT/HCPCS: 99212 ==

== ENCOUNTER → 2025-05-26 13:29 | Outpatient (BNV) | payer MEDICARE, BC, SELFPAY | PROVIDERS: PCP Family Medicine; Visit Provider Radiology Diagnostic Radiology | DX: K86.2 Cyst of pancreas (principal) | CPT/HCPCS: 74183 ==

== ENCOUNTER 2025-05-26 13:30 | Outpatient (REF) | payer MEDICARE, BC, SELFPAY ==
--- NOTE | ~2025-05-26 | MR_ITS ---
EXAMINATION: MR ABDOMEN WITHOUT THEN WITH IV CONTRAST HISTORY: L29.9 - Pruritus, unspecified COMPARISON: Correlation is made with an abdominal ultrasound dated 04/27/2025. TECHNIQUE: Axial in and out of phase T1-weighted gradient echo, axial diffusion weighted, and axial and coronal HASTE T2 with fat saturation images were obtained through the abdomen. Subsequently, fat suppressed axial and coronal T1-weighted images were obtained after the intravenous administration of 8.5 mL Gadavist. FINDINGS: Liver: There is no loss of signal intensity in the liver on opposed phase imaging to suggest steatosis. There is no enhancing liver mass. The hepatic and portal veins are patent. There is no intrahepatic biliary dilatation. Gallbladder/biliary tree: No gallstones are identified. The common bile duct is normal in caliber. No intraluminal filling defects are identified to suggest choledocholithiasis. Spleen: The spleen is unremarkable. Pancreas: There is a tiny 2 mm cyst in the pancreatic body. The pancreas is otherwise unremarkable. There is no enhancing pancreatic mass. The pancreatic duct is normal in caliber. Adrenals: The adrenal glands are unremarkable. Kidneys: The kidneys are unremarkable. There is no hydronephrosis. Lymph nodes: There is no retroperitoneal lymphadenopathy in the upper abdomen. Fluid: There is no ascites in the upper abdomen. Visualized bowel: The visualized small and large bowel loops are unremarkable in appearance. Visualized bones: The visualized bones demonstrate normal marrow signal intensity. MR/MR abdomen wo/w con IMPRESSION: Tiny 2 mm cyst of the pancreatic body. Otherwise unremarkable MRI of the abdomen without and with contrast. According to the ACR guidelines on the management of incidental pancreatic cysts, a follow-up examination in 2 years is recommended. J Am Johnny Radiol Vol. 14, Issue 7, [id number]. May 2017 Electronically signed by: Zeyad Rich MD 05/26/2025 02:48 PM EDT
--- OUTSIDE RECORDS SUMMARY | 2025-05-26 13:37 | XMS_ITS | Encounter Summary ---
Author Organization [facility] Address [address] [facility] [address] [place] [id number] Phone Care Team Providers Care Professor Of Historical Theology Name Role Phone Catrina Rodrigues MD, MPH Primary Care Provid er Julian Garsia MD Unavailable [phone] Catrina Rodrigues MD, MPH Unavailable [phone]- [phone] Washington Cedillo MD Unavailable [phone] Reason for Referral * MRI/CAT Scan - Closed Specialty Diagnoses / Procedures Referred By Contac t Referred To Contact Radiology Diagnoses Coronary artery disease involving chilkat coronary artery of chilkat heart without angina pectoris Procedures NC Stress Result for Nuclear Stress Test Catrina Rodrigues MD, MPH Phone: tel: fax: [email or web address] Referral ID Status Reason Start Date Expiration Date Visits Re quested Visits Authorized [id number] Closed 07/30/2023 1 1 Encounter Details Date Type Department Care Team (Late st Contact Info) Description 07/30/2023 Ancillary Orders Non-Invasive Cardiology [address] [place] [address] Catrina Rodrigues MD, MPH [address] [facility] [address] [place] [address] [email or web address] Coronary artery disease involving chilkat coronary artery of chilkat heart without angina pectoris Social History Tobacco Use Types Packs/Day Years Used Date Smoking Tobacco: Former Smokeless Tobacco: Never Alcohol Use Standard Drinks/Week Comments Yes 1 (1 standard drink = 0.6 oz pur e alcohol) Child or Family Care Answer Date Record ed Do you have problems with on e of the following making it difficult for you to work, study, or receive health care? No 12/07/2021 Education Answer Date Recorded Are you interested in help w ith more adult education (for example, completing high school, GED, job training, learning the [place] language, technical skills, or developing parenting skills)? No 12/07/2021 Food Answer Date Recorded Within the past 6 months we worried whether our food would run out before we got money to buy more. Never True 12/07/2021 Within the past 6 months the food we bought just didn't last and we didn't have enough money to get more. Never True Residential Stability Answer Date Recor ded What is your housing situation today? I have arsh mosley 12/07/2021 How many times have you move d in the past 12 months? Zero (I did not move) 12/07/2021 Paying for Meds Answer Date Recorded Do you have trouble paying for medicines? No 12/07/2021 Paying Utility Bills Answer Date Record ed Do you have trouble paying your heating or elect ricity bill? No 12/07/2021 Transportation Answer Date Recorded Has the lack of transportati on kept you from medical appointments or from getting medications? No 12/07/2021 Unemployment Answer Date Recorded Are you currently unemployed or working on a part-time or temporary basis, and looking for work? No 12/07/2021 Digital Access Answer Date Recorded No 04/01/2023 No 04/01/2023 Reliable internet access at home? Not on file 04/01/2023 Device with a working camera? Not on file Sex and Gender Information Value Date Recorded Sex Assigned at Male 09/24/2018 7:33 PM EST Legal Sex Male 7:40 PM EDT Gender Identity Male 09/24/2018 7:33 PM EST Sexual Orientation Straight 09/24/2018 7: 33 PM EST documented as of this encounter Plan of Treatment Not on file documented as of this encounter Results * NC Stress Result for Nuclear Stress Test (07/30/2023 10:06 AM EDT) Max BP Systolic 158 mmHg [facility] Max BP Diastolic 80 mmHg [facility] Max HR 129 BPM [facility] Resting HR 74 BPM [facility] Resting BP Systolic 118 mmHg [facility] Resting BP Diastolic 74 mmHg [facility] Peak METS 2.0 METS [facility] Peak HR 127 BPM [facility] Anatomical Region Laterality Modality Heart Other 07/30/2023 9:19 AM EDT 07/30/2023 10:05 AM EDT Narrative 07/30/2023 2:21 PM EDT Response to Stress The patient exercised for minutes seconds, achieving 2.0 METS at peak exercise. Baseline blood pressure was 118/74 mmHg, and baseline heart rate was 74 bpm. The patient achieved a peak heart rate of 127 bpm, which is% of their maximum predicted heart rate. REPORT- Patient exercised for 4:02 minutes on a HATTIE protocol achieving 5.8 METS. Test terminated due to shortness of breath. Baseline resting heart rate was 76 bpm. Maximum heart rate achieved was 129 bpm (85% MPHR). 1. EKG - Baseline EKG showed sinus rhythm. During exercise, there were no EKG changes meeting criteria for ischemia. 2. SYMPTOMS - No chest pain. He did report very significant dyspnea that onset early in exercise. 3. EXERCISE PHYSIOLOGY - Fair functional capacity for age. BP 118/74 at rest, 158/80 during exercise, and 120/74 upon discharge from stress lab. 4. ARRHYTHMIAS - None. Conclusion - No EKG evidence of ischemia. No chest pain reported during exercise, though significant dyspnea could be an anginal equivalent. Nuclear images pending and will be reported separately. Marie Arreaga, REFRIGERATION ENGINE OPERATOR with Dr Burt . us Catrina Rodrigues MD, MPH CV NM CARDIAC Faye l Result documented in this encounter Visit Diagnoses Diagnosis Coronary artery disease involving chilkat coronary artery of chilkat heart without angina pectoris Coronary artery disease involving chilkat coronary artery of chilkat heart without angina pectoris documented in this encounter Additional Health Concerns Infection Onset Date Last Indicated Resolved Time COVID-19 10/19/2023 10/19/2023 11/09/2023 1:22 AM EST Assessment Noted Time PHQ-9 Depression Total Score: 14 023 1:11 PM EDT PHQ-2 Depression Total Score: 2 06/23/20 23 1:11 PM EDT documented as of this encounter Care Teams Professor Of Historical Theology Relationship Specialty Start Date End Date Catrina Rodrigues MD, MPH [address] [place] [id number] [email or web address] PCP - General Family Medicine 12/14/19 Julian Garsia MD [address] [facility] [place] [address] [employer] Roboticist Cardiology 12/14/19 Catrina Rodrigues MD, MPH [address] [place] [id number] [email or web address] Insurance Assigned Provider 02/07/24 Washington Cedillo MD [address] [place] [id number] Pulmonary Disease 09/07/24 documented as of this encounter Additional Source Comments The information contained in this document represents components of the legal health record. It is not the complete legal health record.[facility]
== END 2025-05-26 13:31 | disposition home or self-care (01) ==
LOC: HO.MRI 13:30
PROVIDERS: PCP Family Medicine; Visit Provider Internal Medicine
DX: R79.89 Other specified abnormal findings of blood chemistry (principal); L29.9 Pruritus, unspecified
CPT/HCPCS: 74183; A9585

== ENCOUNTER 2025-06-10 07:19 | Outpatient (REF) | payer MEDICARE, BC, SELFPAY ==
--- NOTE | ~2025-06-10 | FL_ITS ---
EXAMINATION: XR UPPER GI SERIES with barium swallow CLINICAL INFORMATION: Abdominal pain. COMPARISON: None available. TECHNIQUE: Routine upper GI air contrast study was performed in upright standing and lying supine and prone views. FINDINGS: Following oral administration of thick barium and effervescent granules and upright view there is normal propagation of bolus from the oral cavity through the pharynx, esophagus into stomach without any evidence of obstruction, narrowing or stricture. On placing patient supine and prone lying the course, caliber and peristalsis of the stomach, duodenal bulb and sweep is normal. There is small to moderate sized gastroesophageal reflux without hiatal hernia. The mucosal pattern of stomach, duodenal bulb and this CT is normal. Rest the course, caliber and peristalsis of the stomach, duodenal bulb and sweep is normal. FLUOROSCOPY TIME: 2 2.02 DOSE AREA PRODUCT: 2009 uGy-m2 (microgray-meter squared) FL/FL upper GI w air w Ba Swallow IMPRESSION: Moderate gastroesophageal reflux without hiatal hernia. Electronically signed by: Sean Trejo MD 06/10/2025 11:55 AM EDT
== END 2025-06-10 07:20 | disposition home or self-care (01) ==
LOC: HO.XRAY 07:19
PROVIDERS: PCP Family Medicine; Visit Provider Internal Medicine
DX: R11.0 Nausea (principal); R10.9 Unspecified abdominal pain
CPT/HCPCS: 74240; 74246

== ENCOUNTER → 2025-06-10 07:25 | Outpatient (BNV) | payer MEDICARE, BC, SELFPAY | PROVIDERS: PCP Family Medicine; Visit Provider Radiology Diagnostic Radiology | DX: K21.9 Gastro-esophageal reflux disease without esophagitis (principal) | CPT/HCPCS: 74246 ==

== ENCOUNTER 2025-09-12 15:22 | Outpatient (AMB) | payer MEDICARE, BC, SELFPAY ==
--- NOTE | 2025-09-12 15:24 | MHC.OFFVIS ---
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: No Accompanied by: Self / Same As Patient Allergies No Known Allergies (No Known Allergies*) Allergy (Verified 05/11/25 11:36) Medication List - Last Reconciled 09/12/25 by Julian Garsia MD albuterol sulfate 90 mcg/actuation 2 puffs inhalation QID PRN 90 days atorvastatin 80 mg PO DAILY carvedilol 3.125 mg PO BID clopidogrel 75 mg PO DAILY lisinopril 2.5 mg PO DAILY nitroglycerin 0.4 mg sublingual Q5M PRN omeprazole 20 mg PO DAILY 90 days peg 3350-electrolytes 236-22.74-6.74 -5.86 gram (Golytely) 240 mL PO Q10M umeclidinium-vilanterol 62.5-25 mcg/actuation (Anoro Ellipta) 1 inh inhalation DAILY 90 days HPI Comments Details: Pleasant 70-year-old gentleman here for follow-up. He has background history of coronary artery disease and presented with inferior ST-elevation NE for which she underwent PCI to right coronary artery. Subsequent to that he was admitted with unstable angina and had PCI to diagonal artery. He has residual LAD stenosis which was medically managed. He has been doing well and has no exertional chest discomfort. Taking medications regularly. He has dyspnea on exertion in particular when he is going up hill. He was a former smoker and was vaping for 2 years also. He was referred to pulmonology and has been following with them regularly. 08/06/2023: Returns for follow-up. He has been experiencing more dyspnea on exertion. He has gained some weight and has not been exercising regularly. Apparently he was referred for exercise stress test by his primary care physician where he was able to exercise for 2 metabolic equivalents and stop because of shortness of breath. He subsequently had nuclear perfusion imaging which was normal. His returning and is complaining of shortness of breath. He does not have any significant chest discomfort. He is saying that pulmonology has told him that he does not have significant lung disease as cause for his dyspnea. He clearly has a lot of functional limitation. Previously we did not stent is LAD because it may involve a complex bifurcation stenting. He had residual disease in the LAD. 12/08/2023: He returns for follow-up. He was complaining of dyspnea on exertion and after discussion she was taken for diagnostic cardiac catheterization. Cardiac catheterization showed that he continues to have a moderate ostial LAD stenosis. This was retested with IFR and IFR was 0.91 quite similar to 2018. Given the fact that he had worsening dyspnea over the last few months and the fact that his coronary anatomy was unchanged it was felt that dyspnea is due to some other pathology. He is not returning and has been exercising and has lost some weight and is saying that his breathing has improved somewhat. He also is following with pulmonology and went a cardiopulmonary exercise stress test. I have explained to him that he may qualify for cardiac rehabilitation and he is interested in that. 04/14/2024: He returns for follow-up. He has been stable and trying to be more active. He is saying his breathing has improved with activity. No chest discomfort. Blood pressure is well controlled. Overall clinically stable. 02/08/2025: He is here for follow-up. Denying any chest discomfort. He has not been active during winter time. He is saying he is continues to get shortness of breath with activities. His weight has fluctuated and he gained weight up to 200 lb during winter and now down to 186 lb. He is saying he is going to start exercising as the weather is getting warmer. 09/12/2025: He is here for follow-up. He was getting GI complaints and went and saw gastroenterology. 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 He subsequently had further testing and his antibody so far are negative. He continues to have bloating after eating. He is saying that he gets short of breath after eating. This is not after eating a large meal and he feels that he gets bloated from eating and that leads to shortness of breath. He is denying any chest discomfort. When he walks on playing surface he has no symptoms. Continues to have exertional dyspnea when he goes uphill which appears to be stable. [facility] Surgical History Hx of colonoscopy H/O removal of cyst History of heart artery stent Family History Mother Primary cancer of bone marrow Father Prostate cancer Heart disease Social History Alcohol intake: current Alcohol intake frequency: holidays/special occasions only Patient Tobacco Use Status: Former Tobacco user Years Smoked: 30 +/- e-Cigarette/Vaping Use: Former Use Date or number of years quit: quit 2016 Review of Systems Const Denies chills, Denies fatigue, Denies fever(s), Denies frequent falls, Denies weakness, Denies weight gain and Denies weight loss ENT Denies dizziness Card Denies chest pain, Denies leg edema, Denies lightheadedness, Denies palpitations, Denies dyspnea and Denies dyspnea on exertion Resp Denies cough, Denies dyspnea and Denies dyspnea on exertion GI Denies hematochezia Musc Denies abnormal gait, Denies muscle weakness, Denies numbness, Denies radiating pain into limb and Denies tingling Neuro Denies abnormal gait, Denies dizziness, Denies frequent falls, Denies numbness, Denies tingling and Denies weakness Endo Denies fatigue and Denies palpitations Physical Exam Vital Signs: Last Vital Signs Pulse 71 09/12/25 15:27 BP 116/60 09/12/25 15:27 BMI result Body Mass Index 30.3 GENERAL APPEARANCE: in no acute distress, pleasant. NECK: no carotid bruit, no jugular venous distention. SKIN: no suspicious lesions, warm and dry. HEART: no murmurs, regular rate and rhythm. LUNGS: clear to auscultation bilaterally. ABDOMEN: soft, nontender. EXTREMITIES: no edema. PERIPHERAL PULSES: equal. NEUROLOGIC: No gross deficits, AAO X 3 Assessment & Plan Assessment & Plan (1) Stable angina: Code(s): I20.89 - Other forms of angina pectoris Category: Medical (2) MI (dyspnea on exertion): Code(s): R06.00 - Dyspnea, unspecified Category: Medical (3) Hypertension: Comment: Blood pressure control is good. Code(s): I10 - Essential (primary) hypertension Category: Medical Qualifiers: Hypertension type: essential hypertension Qualified Code(s): I10 - Essential (primary) hypertension (4) Hyperlipidemia: Code(s): E78.5 - Hyperlipidemia, unspecified Category: Medical Qualifiers: Hyperlipidemia type: unspecified Qualified Code(s): E78.5 - Hyperlipidemia, unspecified Plan Pleasant 70-year-old gentleman who is here for follow-up. He has background history of tobacco abuse and known coronary artery disease with previous RCA PCI for inferior wall NE. He also had diagonal PCI due to unstable angina. He has approximately 60% proximal and ostial LAD stenosis which was previously IFR negative. He has seen Gastroenterology underwent workup which showed positive SUKHDEEP. He is waiting to see Rheumatology for that. He is getting GI issues with bloating and he is saying that when he eats he starts feeling shortness of breath. This is not with large meals and he thinks this is related to bloating. I have explained to him that sometimes anginal symptoms can happen after eating a large meal but he is not complaining of chest discomfort like he did before he went for angiography/PCI. He will continue to do physical activities and we will report to me if there is any change in his ability to exercise. He will continue same medications for now. I will see him earlier in 3 months. If he has any change in symptoms then we will consider repeat stress testing. Thank you for allowing me to participate in the care of your patient. Please feel free to contact me if you have any questions. Coding Level of Care Code Est Pt Level 4 (46186) Diagnoses Stable angina I20.89 MI (dyspnea on exertion) R06.00 Essential hypertension I10 Hypertension type: essential hypertension Hyperlipidemia, unspecified hyperlipidemia type E78.5 Hyperlipidemia type: unspecified
[2025-09-12 15:27] VITALS: BP 116/60; PULSE 71; BMI 30.3
--- OUTSIDE RECORDS SUMMARY | 2025-09-12 17:29 | XMS_ITS | Encounter Summary ---
Author Organization [facility] Address [address] [facility] [address] [place] [phone] Phone Care Team Providers Care Policyholder Information Clerk Name Role Phone Catrina Rodrigues MD, MPH Primary Care Provid er Julian Garsia MD Unavailable [phone] Catrina Rodrigues MD, MPH Unavailable [phone] [place] Cedillo MD Unavailable [phone] Reason for Referral * MRI/CAT Scan - Closed Specialty Diagnoses / Procedures Referred By Napoleon t Referred To Contact Radiology Diagnoses Coronary artery disease involving [place] coronary artery of [place] heart without angina pectoris Procedures NC Stress Result for Nuclear Stress Test Catrina Rodrigues MD, MPH Phone: tel: fax: [email or web address] Referral ID Status Reason Start Date Expiration Date Visits Re quested Visits Authorized [id number] Closed 07/30/2023 1 1 Encounter Details Date Type Department Care Team (Late st Contact Info) Description 07/30/2023 Ancillary Orders Non-Invasive Cardiology [address] [place] [address] Catrina Rodrigues MD, MPH [address] [facility] [address] [place] [address] Coronary artery disease involving [place] coronary artery of [place] heart without angina pectoris Social History Tobacco [...] high school, GED, job training, learning the [place] language, technical skills, or developing parenting skills)? [...] as of this encounter Plan of Treatment Upcoming Encounters Date Type Department Care Team (Late st Contact Info) Description 09/20/2025 10:40 AM EST Office Visit [facility] [address] [facility] [address] [place] [address] Catrina Rodrigues MD, MPH [address] [facility] [address] [place] [address] Monse Guthrie MD [address] [facility] [address] [place] [address] documented as of this encounter Results * NC Stress Result for Nuclear Stress Test (07/30/2023 10:06 AM EDT) Max BP Systolic 158 mmHg [facility] Max BP Diastolic 80 mmHg [facility] Max HR 129 BPM [facility] Resting HR 74 BPM [facility] Resting BP Systolic 118 mmHg [facility] Resting BP Diastolic 74 mmHg [facility] Peak METS 2.0 METS [facility] Peak HR 127 BPM [facility] Anatomical Region Laterality Modality Heart Other 07/30/2023 [...] pending and will be reported separately. Marie Arreaga DEVELOPMENT SCIENTIST with Dr Burt . us Catrina Rodrigues MD, MPH CV NM CARDIAC Faye l Result documented in this encounter Visit Diagnoses Diagnosis Coronary artery disease involving [place] coronary artery of [place] heart without angina pectoris Coronary artery disease involving [place] coronary artery of [place] heart without angina pectoris documented in this encounter Additional Health Concerns Infection Onset Date Last Indicated Resolved Time COVID-19 10/19/2023 10/19/2023 11/09/2023 1:22 AM EST Assessment Noted Time PHQ-9 Depression Total Score: 14 023 1:11 PM EDT PHQ-2 Depression Total Score: 2 06/23/20 23 1:11 PM EDT documented as of this encounter Care Teams Policyholder Information Clerk Relationship Specialty Start Date End Date Catrina Rodrigues MD, MPH [address] [place] [id number] [email or web address] PCP - General Family Medicine 12/14/19 Julian Garsia MD [address] [facility] [place] [address] Excel Specialist Cardiology 12/14/19 Catrina Rodrigues MD, MPH [address] [place] [phone] [email or web address] Insurance Assigned Provider 02/07/24 Washington Cedillo MD [address] [place] [id number] Pulmonary Disease 09/07/24 documented as of this encounter Additional Source Comments The information contained in this document represents components of the legal health record. It is not the complete legal health record.[facility]
--- OUTSIDE RECORDS SUMMARY | 2025-09-12 17:29 | XMS_ITS | Encounter Summary ---
Author Organization [facility] Address [address] [facility] [address] [place] [address] Phone Care Team Providers Care Applications Support Specialist Name Role Phone Catrina Rodrigues MD, MPH Primary Care Provid er Julian Garsia MD Unavailable [phone] Catrina Rodrigues MD, MPH Unavailable [phone] Washington Cedillo MD Unavailable [phone] Encounter Details Date Type Department Care Team (Late st Contact Info) Description 12/19/2020 Procedure Pass [facility], [address] [address] Social History Tobacco Use Types Packs/Day Years Used Date Smoking Tobacco: Former Smokeless Tobacco: Never Alcohol Use Standard Drinks/Week Comments Yes 0 (1 standard drink = 0.6 oz pur e alcohol) Sex and Gender Information Value Date Recorded Sex Assigned at Male 09/24/2018 7:33 PM EST Legal Sex Male 7:40 PM EDT Gender Identity Male 09/24/2018 7:33 PM EST Sexual Orientation Straight 09/24/2018 7: 33 PM EST documented as of this encounter Last Filed Vital Signs Vital Sign Reading Time Taken Comments Blood Pressure - - Pulse - - Temperature - - Respiratory Rate - - Oxygen Saturation - - Inhaled Oxygen Concentration - - Weight 83.9 kg (185 lb) 12/21/2020 3:08 PM EST Height 167.6 cm (5' 6 ) 12/21/2020 3:08 PM EST Body Mass Index 29.86 12/21/2020 3:08 PM EST documented in this encounter Plan of Treatment Upcoming Encounters Date Type Department Care Team (Late st Contact Info) Description 09/20/2025 10:40 AM EST Office Visit [facility] [place] [facility] 15 [facility] [address] [place] [address] Catrina Rodrigues MD, MPH 15 [facility]. [address] [place] [address] Mones Guthrie MD [address] [address] documented as of this encounter Visit Diagnoses Not on filedocumented in this encounter Additional Health Concerns Infection Onset Date Last Indicated Resolved Time COVID-19 10/19/2023 10/19/2023 11/09/2023 1:22 AM EST Assessment Noted Time PHQ-2 Depression Total Score: 1 12/13/19 20 4:21 PM EST documented as of this encounter Care Teams Applications Support Specialist Relationship Specialty Start Date End Date Catrina Rodrigues MD, MPH [address] [place] [phone] PCP - General Family Medicine 12/14/19 Julian Garsia MD [address] [facility] [place] [address] Master Baker Cardiology 12/14/19 Catrina Rodrigues MD, MPH [address] [place] [address] [email or web address] Insurance Assigned Provider 02/07/24 Washington Cedillo MD [address] [place] [address] Pulmonary Disease 09/07/24 documented as of this encounter Additional Source Comments The information contained in this document represents components of the legal health record. It is not the complete legal health record.[facility]
--- OUTSIDE RECORDS SUMMARY | 2025-09-12 17:29 | XMS_ITS | Clinical Summary ---
Author Organization [facility] Address [address] [facility] [address] [place] [address] Phone Care Team Providers Care Metal Products Viewer Name Role Phone Catrina Rodrigues MD, MPH Primary Care Provid er Julian Garsia MD Unavailable [phone] Catrina Rodrigues MD, MPH Unavailable [phone] Washington Cedillo MD Unavailable [phone] Allergies No known active allergies Medications aspirin 81 MG EC tablet Take 81 mg by mouth daily. Active atorvastatin (LIPITOR) 80 MG tablet Take 80 mg by mouth daily. Active carvedilol (COREG) 3.125 MG tablet Take 3.125 mg by mouth 2 (two) times a day with meals. Active lisinopril (PRINIVIL,ZESTR IL) 2.5 MG tablet Take 2.5 mg by mouth daily. Active nitroglycerin (NITROSTAT) 0.[address] 0.4 mg under the tongue every 5 (five) minutes as needed for chest pain. Active clopidogrel (PLAVIX) 75 mg tablet Take 75 mg by mouth daily. Active ANORO ELLIPTA 62.5-25 mcg/actuation diskus inhaler 3 Active melatonin 10 mg Tab Take as needed Indications: supplement Active COVID-19 AT-HOME TEST Kit FOLLOW INSTRUCTIONS INCLUDED WITH THE PACKAGE. 3 Active albuterol 90 mcg/actuation inhaler Inhale 2 puffs into the lungs as needed for wheezing or shortness of breath/dyspnea. 3 Active pantoprazole (PROTONIX) 20 MG tablet Take 1 tablet (20 mg total) by mouth daily. 30 tablet 2 4 Active Active Problems Problem Noted Date Diagnosed Date Daytime sleepiness 11/06/2023 Other insomnia 11/06/2023 Assessment & Plan (09/07/2024 3:06 PM EST): Elevated liver function tests 01/24/2020 Assessment & Plan (09/07/2024 3:06 PM EST): Assessment & Plan (01/24/2020 11:16 AM EDT): Unlikely contributing to current malaise as pt reports chronic issue. Will need non-urgent evaluation of this. From review of his currently available records, it appears he did have an HCV checked at some point. Will try to get those results and any prior imaging. Hyperlipidemia 12/14/2019 Assessment & Plan (12/14/2019 11:34 AM EST): Cont statin Mood disorder 12/14/2019 Overview (07/27/2023): Reports some concerns for depression and partha by past providers Summer 2022 started on wellbutrin- I suspect more likely dx is complex PTSD Assessment & Plan (09/07/2024 3:06 PM EST): Assessment & Plan (07/27/2023 2:24 PM EDT): Doing well with wellbutrin. No concerning side effects or evidence of triggered partha at this time. Will continue at same dose. Assessment & Plan (06/23/2023 3:18 PM EDT): [place] and I discussed his depression and very difficult day today as a result. I encouraged him to consider a medication to help with depression and he is amenable. He has never been diagnosed with bipolar, and as a patient with considerable trauma in his past, his symptoms may have been entirely PTSD related, however we will not start with an SSRI to minimize risk of triggering a bipolar event. Celexa would be my first SSRI of choice for him in the future if we were to go that route. Assessment & Plan (01/24/2020 11:19 AM EDT): I suspect this is most likely the major contributor to his fatigue and malaise, although we discussed that my evaluation is somewhat limited without a physical exam. He feels comfortable with this assessment and will left me know if any of his symptoms change, worsen or develop. Assessment & Plan (12/14/2019 11:35 AM EST): Currently well controlled. Will keep this history in mind when thinking about other medication options for insomnia. Hypertensive disorder 12/13/2019 Assessment & Plan (07/27/2023 2:25 PM EDT): Well controlled, cont current meds. Cont with cardiology Assessment & Plan (12/14/2019 11:37 AM EST): Well controlled today Atherosclerosis of [place]well coronary artery of [place] nick heart 12/13/2019 Overview (12/14/2019): [place] 2017 Sees [facility] Cardiology, Dr Garsia Has 2 BEREKET stents - Assessment & Plan (09/29/2024 6:15 PM EST): FU with cardiology as planned Assessment & Plan (07/27/2023 2:24 PM EDT): Await stress test results. Assessment & Plan (01/24/2020 11:18 AM EDT): Stable at this time, no worsening of symptoms Assessment & Plan (12/14/2019 11:32 AM EST): Continue following with Dr Garsia. Cont tight BP and cholesterol control. Atherosclerosis of aorta 12/13/2019 Overview (12/13/2019): 65% per pt report Followed by Dr Garsia Assessment & Plan (09/07/2024 3:06 PM EST): Stable per pt report Witnessed episode of apnea 12/13/2019 Assessment & Plan (12/22/2021 4:03 PM EST): Presumed JOSE. Not willing to get sleep study at this time. Counseled on sleeping propped up (like on the couch) which can sometimes help minimize apneic episodes. Assessment & Plan (12/12/2020 11:42 AM EST): Phone number given to call Dr Coreas's office re sleep study Assessment & Plan (12/14/2019 11:34 AM EST): Recommend sleep study as JOSE is possibly contributing to insomnia. Reports episodes of waking up gulping. Encounters Date Type Department Care Team Description 06/28/2025 Orders Only [address] [place] [address] Unknown, Unknown, from Last 3 Months Immunizations Immunization Administration Dates Next Due DT 06/02/2001 [id number] FORMULATION 09/04/2009 INFLUENZA, SPLIT VIRUS, TRIVALENT PF 09/13/2014 INFLUENZA, SPLIT VIRUS, TRIV ALENT W/ PRESERVATIVE IM 07/14/2018,07/03/2017,09/09/2016,09/05,09/13/2014,08/30/2005 Influenza High-Dose Quadriva lent Preservative Free IM 08/22/2022 Influenza High-Dose Trivalen t Preservative Free IM 09/16/2024 Influenza Quadrivalent Adjuv anted Preservative Free IM 10/17/2023 Influenza Quadrivalent Prese rvative Free IM 07/14/2018,07/03/2017,09/09/2016,09/05 Influenza, Unspecified Formulation 11/13,07/12/2011,08/17/2010,08/10 Pneumococcal conjugate PCV13 08/27/2019 Pneumococcal polysaccharide PPSV23 10/02/2018 RSV Vaccine (bivalent) 08/05/2023 Td, unspecified formulation 06/02/2001 Tdap 09/16/2024,01/24/2013 Zoster live 09/14/2014 Zoster recombinant 10/17/2023,08/05/2023 Family History Medical History Relation Comments Stroke Brother 2 Heart disease Father Prostate cancer Father Cancer Mother Cancer Sister metastatic- unce rtain source Alcohol abuse Unspecified Relation Status Comments Brother 1 bacterial mening itis Brother 2 Alive Father Mother Sister (Age 27) Unspecified Social History Tobacco Use Types Packs/Day Years Used Date Smoking Tobacco: Former Smokeless Tobacco: Never Tobacco Cessation:Counseling Given: Not Answered Alcohol Use Standard Drinks/Week Comments Yes 3 (1 standard drink = 0.6 oz pur e alcohol) Child or Family Care Answer Date Record ed Do you have problems with on e of the following making it difficult for you to work, study, or receive health care? No 08/31/2024 Education Answer Date Recorded Are you interested in more education? Not on katia e 12/08/2023 Are you concerned about learning? Not on file 12/08/2023 No 12/08/2023 No 12/08/2023 Food Answer Date Recorded Within the past 6 months we worried whether our food would run out before we got money to buy more. Never True 08/31/2024 Within the past 6 months the food we bought just didn't last and we didn't have enough money to get more. Never True Residential Stability Answer Date Recor ded What is your housing situation today? I have arsh mosley 08/31/2024 How many times have you move d in the past 12 months? Zero (I did not move) 08/31/2024 Paying for Meds Answer Date Recorded Do you have trouble paying for medicines? No 08/31/2024 Paying Utility Bills Answer Date Record ed Do you have trouble paying your heating or elect ricity bill? No 08/31/2024 Transportation Answer Date Recorded Has the lack of transportati on kept you from medical appointments or from getting medications? No 08/31/2024 Unemployment Answer Date Recorded Are you currently unemployed or working on a part-time or temporary basis, and looking for work? No 12/07/2021 Digital Access Answer Date Recorded No 08/31/2024 Yes 08/31/2024 Do you have reliable internet access at home? Ye s 08/31/2024 Do you have a device (e.g., phone, tablet, computer) with a working camera? Yes 08/31/2024 Intimate Partner Violence Answer Date R ecorded Are you denied basic needs s uch as food, clothing, or medical care? No 09/01/2024 In the past 12 months have y ou been in a relationship with a person who hurts, threatens, or tries to control you? No 09/01/2024 Are you denied basic needs s uch as food, clothing, or medical care? No 09/01/2024 In the past 12 months have y ou been in a relationship with a person who hurts, threatens, or tries to control you? No 09/01/2024 Sex and Gender Information Value Date Recorded Sex Assigned at Male 09/24/2018 7:33 PM EST Legal Sex Male 7:40 PM EDT Gender Identity Male 09/24/2018 7:33 PM EST Sexual Orientation Straight 09/24/2018 7: 33 PM EST Last Filed Vital Signs Vital Sign Reading Time Taken Comments Blood Pressure 122/82 09/07/2024 1:59 PM EST Pulse 76 09/07/2024 1:59 PM EST Temperature 36.5 C (97.7 F) 04/26/2024 8:42 PM EDT Respiratory Rate 16 04/26/2024 8:42 PM EDT Oxygen Saturation 97% 09/07/2024 1:59 PM EST Inhaled Oxygen Concentration - - Weight 84.8 kg (187 lb) 09/07/2024 1:59 PM EST Height 167.6 cm (5' 6 ) 09/07/2024 1:59 PM EST Body Mass Index 30.18 09/07/2024 1:59 PM EST Plan of Treatment Upcoming Encounters Date Type Department Care Team (Late st Contact Info) Description 09/20/2025 10:40 AM EST Office Visit [facility] [place] [facility] 15 [facility] [address] [place] [address] Catrina Rodrigues MD, MPH [address] [address] [email or web address] Monse Guthrie MD [address] [address] [phone] (work) [email or web address] Health Maintenance Due Date Last Done Comments SMOKING Hx and SMOKELESS TOBACCO SCREENING 1967 COLONOSCOPY 1999 FIT TEST 1999 FOBT 1999 SIGMOIDOSCOPY 1999 VIRTUAL COLONOSCOPY 1999 PNEUMOCOCCAL VACCINES (50+ years) (3 of 3 - PCV20 or PCV21) 08/27/2024 08/27/2019, 10/02/2018 COLOGUARD 01/11/2025 01/11/2022 COLORECTAL CANCER SCREENING 01/11/2025 BLOOD PRESSURE 03/07/2025 09/07/2024 INFLUENZA VACCINE (#1) 2025 , 10/17/2023, 08/22/2022, Additional history exists COVID-19 VACCINE ( season) 2025 09/16/2024, 08/05/2023, 08/22/2022, Additional history exists CREATININE LEVEL 08/11/2025 08/11/2024, , 12/12/2023, Additional history exists POTASSIUM LEVEL 08/11/2025 08/11/2024, 04/04, 12/12/2023, Additional history exists DEPRESSION SCREENING 09/01/2025 09/01/2024, 10/14/20 23 Adult Td,Tdap Booster 09/16/2034 09/16/2024 , 01/24/2013, 06/02/2001 ABDOMINAL AORTIC ANEURYSM (AAA) SCREENING Completed 12/20/2022 RSV VACCINE Completed 08/05/2023 ZOSTER VACCINES Completed 10/17/2023, 01/2023, 09/14/2014 HEPATITIS C SCREENING Completed 08/11/2024 , 08/11/2024, 08/11/2024, Additional history exists HEPATITIS A VACCINES Aged Out No long er eligible based on patient's age to complete this topic HIB VACCINES Aged Out No longer eligi ble based on patient's age to complete this topic IPV VACCINES Aged Out No longer eligi ble based on patient's age to complete this topic MENINGOCOCCAL VACCINES (ACWY) Aged Out No longer eligible based on patient's age to complete this topic MENINGOCOCCAL VACCINES (B) Aged Out N o longer eligible based on patient's age to complete this topic Medical Devices Not on file Procedures Procedure Name Priority Date/Time Associated Diagnosis Comments HEPATITIS C ANTIBODY, QUALITATIVE Routine 08/11/2024 8:04 AM EDT Abnormal LFTs COMPREHENSIVE METABOLIC PANEL (CMP) Routine 08/11/2024 8:04 AM EDT Abnormal LFTs US ABDOMINAL AORTIC SCREENING Routine 12/20/2022 8:03 AM EST Tobacco use disorder, severe, in sustained remission OUTSIDE COLOGUARD Routine 01/11/2022 from Last 3 Months or Most Recently Relevant to Health Maintenance Results * (ABNORMAL) Comprehensive metabolic panel (08/11/2024 8:04 AM EDT) SODIUM 138 133 - 146 mmol/L [facility] POTASSIUM 4.7 3.3 - 5.1 mmol/L [facility] CHLORIDE 103 96 - 108 mmol/L [facility] CO2 25 21 - 35 mmol/L [facility] BUN 18 6 - 19 mg/dL [facility] CREATININE 1.10 0.5 - 1.5 mg/dL [facility] GLUCOSE 102(H) 70 - 99 mg/dL [facility] ALBUMIN 4.7 3.9 - 4.8 g/dL [facility] TOTAL PROTEIN 7.9 6.5 - 8.0 g/dL [facility] CALCIUM 9.6 8.4 - 10.3 mg/dL [facility] ALKALINE PHOSPHATASE 96 39 - 117 U/L [facility] TOTAL BILIRUBIN 1.9(H) 0.0 - 1.2 mg/dL [facility] AST 34 0 - 37 U/L [facility] ALT 44(H) 0 - 40 U/L [facility] GLOBULIN 3.2 1 - 4.8 g/dL [facility] EGFR 72 >59 mL/min/1.7 3m2 [facility] Comment:Estimated glomerular filtration rate calculated using the CKD-EPI refit equation. ANION GAP 15 10 - 20 mmol/L [facility] Blood 08/11/2024 8:04 AM EDT 08/11/2024 8:10 AM EDT us Catrina Rodrigues MD, MPH LAB BLOOD BKR ORDERA BLES Final Result Performing Organization Address City/[facility]/ZIP Co de Phone Number [address] [address] * Hepatitis C antibody, qualitative (08/11/2024 8:04 AM EDT) HCV NON-REACTIV E NON-REACTI VE [facility] Blood 08/11/2024 8:04 AM EDT 08/11/2024 8:10 AM EDT us Catrina Rodrigues MD, MPH LAB BLOOD BKR ORDERA BLES Final Result Performing Organization Address [facility]/[place] Co de Phone Number [address] [address] * US Abdominal Aortic Screening (12/20/2022 8:03 AM EST) Anatomical Region Laterality Modality Abdomen Ultrasound 12/20/2022 8:21 AM EST Impressions 12/20/2022 8:23 AM EST * No evidence of abdominal aortic aneurysm. Narrative 12/20/2022 8:23 AM EST US ABDOMINAL AORTIC SCREENING TECHNIQUE: Duplex US examination of the abdominal aorta was performed using a combination of anderson scale, color and pulsed wave Doppler. COMPARISON: None available. FINDINGS: Technically adequate exam demonstrates: Examination of the abdominal aorta demonstrates no evidence of aneurysm. The abdominal aorta measures 2.0 cm proximally, 1.9 cm in its midportion, and 1.9 cm distally. The common iliac arteries measure 1.2 cm on the right and 1.0 cm on the left. Procedure Note Willis Chavez MD, LALIT - 12/20/2022 US ABDOMINAL AORTIC SCREENING TECHNIQUE: Duplex US examination of the abdominal aorta was performedusing a combination of anderson scale, color and pulsed wave Doppler. COMPARISON: None available. FINDINGS: Technically adequate exam demonstrates: Examination of the abdominal aorta demonstrates no evidence of aneurysm.The abdominal aorta measures 2.0 cm proximally, 1.9 cm in its midportion,and 1.9 cm distally. The common iliac arteries measure 1.2 cm on the right and 1.0 cm on theleft. IMPRESSION: * No evidence of abdominal aortic aneurysm. us Catrina Rodrigues MD, MPH IMG US ABDOMEN Faye l Result * OUTSIDE COLOGUARD (01/11/2022) us Catrina Rodrigues MD, MPH HEALTH MAINTENANCE F inal Result from Last 3 Months or Most Recently Relevant to Health Maintenance Insurance [facility] MEDICARE PART A & B [facility] MEDICARE PART A & B [facility] MEDICARE [facility] A & B [facility] MEDICARE PART A & B [facility] MEDICARE PART A & B [facility] MEDICARE PART A & B [facility] MEDICARE PART A & B [facility] MEDICARE PART A & B [facility] MEDICARE PART A & B Advance Directives For more information, please contact: [phone] (9AM - 5PM [facility], Friday-Friday) Documents on File Type Date Recorded Patient Railcar Switcher Expl anation Healthcare Proxy 12/17/2021 5:47 PM Care Teams Metal Products Viewer Relationship Specialty Start Date End Date Catrina Rodrigues MD, MPH [address] [place] [phone] [email or web address] PCP - General Family Medicine 12/14/19 Julian Garsia MD [address] [facility] [place] [address] Seismic Interpreter Cardiology 12/14/19 Catrina Rodrigues MD, MPH [address] [place] [phone] [email or web address] Insurance Assigned Provider 02/07/24 Washington Cedillo MD [address] [place] [phone] Pulmonary Disease 09/07/24 Additional Source Comments The information contained in this document represents components of the legal health record. It is not the complete legal health record.[facility]
--- OUTSIDE RECORDS SUMMARY | 2025-09-12 17:29 | XMS_ITS | Encounter Summary ---
Author Organization [facility] Address [address] [facility] [address] [place] [address] Phone Care Team Providers Care Supervisor Livestock Yard Name Role Phone Catrina Rodrigues MD, MPH Primary Care Provid er Julian Garsia MD Unavailable [phone] Catrina Rodrigues MD, MPH Unavailable [phone] Washington Cedillo MD Unavailable [phone] Encounter Details Date Type Department Care Team (Late st Contact Info) Description 07/16/2023 Ancillary Orders Non-Invasive Cardiology [address] [place] [address] Catrina Rodrigues MD, MPH 15 [facility] [address] [place] [address] [email or web address] 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 [...] your housing situation today? 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 documented in this encounter Additional Health Concerns Infection Onset Date Last Indicated Resolved Time COVID-19 10/19/2023 10/19/2023 11/09/2023 1:22 AM EST Assessment Noted Time PHQ-9 Depression Total Score: 14 023 1:11 PM EDT PHQ-2 Depression Total Score: 2 06/23/20 23 1:11 PM EDT documented as of this encounter Care Teams Supervisor Livestock Yard Relationship Specialty Start Date End Date Catrina Rodrigues MD, MPH [address] [place] [phone] [email or web address] PCP - General Family Medicine 12/14/19 Julian Garsia MD [address] [place] [address] [place] [address] Dredge Operator Supervisor Cardiology 12/14/19 Catrina Rodrigues MD, MPH [address] [place] [phone] [email or web address] Assigned Provider 02/07/24 Washington Cedillo MD [address] [place] [address] Pulmonary Disease 09/07/24 documented as of this encounter Additional Source Comments The information contained in this document represents components of the legal health record. It is not the complete legal health record.[facility]
== END 2025-09-12 15:46 | disposition home or self-care (01) ==
LOC: HO.HCS 15:23
PROVIDERS: PCP Family Medicine; Visit Provider Internal Medicine Cardiovascular Disease
DX: I20.89 Other forms of angina pectoris (principal); R06.00 Dyspnea, unspecified; I10 Essential (primary) hypertension; E78.5 Hyperlipidemia, unspecified
CPT/HCPCS: 99214

== ENCOUNTER → 2025-09-12 15:22 | Outpatient (BNVA) | payer MEDICARE, BC, SELFPAY | PROVIDERS: PCP Family Medicine; Visit Provider Internal Medicine Cardiovascular Disease | DX: I20.89 Other forms of angina pectoris (principal); I10 Essential (primary) hypertension; R06.09 Other forms of dyspnea; E78.5 Hyperlipidemia, unspecified; Z98.61 Coronary angioplasty status | CPT/HCPCS: 99212 ==